=== PATIENT | male | born 1980 | race Caucasian/White ===

== ENCOUNTER 2021-07-12 21:06 | Emergency (ER) | payer BC, SELFPAY | END 2021-07-12 22:21 | disposition left against medical advice (07) | LOC: HO.ED 22:16 | PROVIDERS: Emergency Provider Emergency Medicine; PCP Pediatrics | DX: R10.32 Left lower quadrant pain (principal) ==

== ENCOUNTER 2023-07-23 11:47 | Outpatient (AMB) | payer SELFPAY ==
[2023-07-23 12:09] VITALS: BP 124/82; PULSE 69; TEMP 36.4; O2SAT 97; BMI 30.7
--- NOTE | 2023-07-23 12:09 | MHC.OFFWIV ---
Intake Vital Signs 07/23/23 12:09 Height 6 ft 2 in Weight 239 lb BMI 30.7 BP 124/82 Blood Pressure Location Rt brachial Position Sitting Pulse 69 Pulse Source Pulse Oximeter Temp 97.5 F Temp Source Oral Pulse Oximetry (%) 97 Oxygen Delivery Method Room Air Intake Visit Reasons: [employer]ING[employer] FOR[employer] Pinky swelling/hot to touch Intake Note: Pt presents to the office today for c/o left pinky swelling and also has some left thumb pain that started yesterday. Patient Tobacco Use Status: Never used Tobacco Allergies No Known Allergies Allergy (Verified 07/23/23 12:13) HPI HPI Comments History of Present Illness Details 43-year-old male presents today complaining of swelling and erythema in his left 5th digit the lateral base of his nail bed. He also is complaining of foreign body in his right thumb. [facility] Social History (Updated 07/23/23 @ 12:13 by Deidra Chandler MA) Household Members: None Housing: House Alcohol intake: current Alcohol intake frequency: a few times a week Patient Tobacco Use Status: Never used Tobacco Use of substances other than those prescribed or required for medical reasons: No Review of Systems Const All systems reviewed & are unremarkable except as noted in HPI and below Physical Exam Vital Signs: Last Vital Signs Temp 97.5 F 07/23/23 12:09 Pulse 69 07/23/23 12:09 BP 124/82 07/23/23 12:09 Pulse Ox 97 07/23/23 12:09 Oxygen Delivery Method Room Air 07/23/23 12:09 BMI result Body Mass Index 30.7 Extrem Right upper extremity: Extremity exam: right hand (Foreign body noted in the right thumb. Removed with an 18 gauge needle) Left upper extremity: hand (Erythema and pustules are noted at the base of the nailbed) Details: warmth and swelling Results Reviewed Results Reviewed: A metal foreign body removed from his right thumb. And was displayed to the patient. A small amount pus was withdrawn from the lesion on the left 5th digit. Assessment & Plan Assessment & Plan (1) Cellulitis: Code(s): L03.90 - Cellulitis, unspecified (2) Foreign body (FB) in soft tissue: Code(s): M79.5 - Residual foreign body in soft tissue Plan Cephalexin for 7 days. Continue warm soaks and keep it clean as possible Medications: New cephalexin 500 mg PO BID 14 caps 0RF 7 days Coding Level of Care Code Est Pt Level 3 (67220) Diagnoses Cellulitis L03.90 Foreign body (FB) in soft tissue M79.5
== END 2023-07-23 13:28 | disposition home or self-care (01) ==
PROVIDERS: PCP Internal Medicine; Visit Provider Physician Assistant Medical
DX: L03.90 Cellulitis, unspecified (principal); M79.5 Residual foreign body in soft tissue
CPT/HCPCS: 99213

== ENCOUNTER 2024-12-28 20:50 | Emergency (ER) | payer BC, SELFPAY ==
--- OUTSIDE RECORDS SUMMARY | 2024-12-26 14:22 | XMS_ITS | Encounter Summary ---
Author Organization [facility] Address [address] [place] [address] Care Team Providers Care Project Analyst Name Role Phone Pcp, No Primary Care Provider Unavailabl e Reason for Visit * Reason Comments Fall Fell off dock onto b oat last night. Pain and swelling to right side of upper back and right flank. Denies C-spine tenderness. Encounter Details Date Type Department Care Team (Late st Contact Info) Description 12/26/2024 2:22 PM EDT - 12/26/2024 4:56 PM EDT Emergency [facility] [place] [address] Giselle Arthur MD [address] [place] [address] Fall, initial encounter (Primary Dx); Hematoma Discharge Disposition: Home or Self Care Social History Tobacco Use Types Packs/Day Years Used Date Smoking Tobacco: Never Assessed Sex and Gender Information Value Date Recorded Sex Assigned at Not on file Legal Sex Male 10:46 AM EDT Gender Identity Not on file Sexual Orientation Not on file documented as of this encounter Last Filed Vital Signs Vital Sign Reading Time Taken Comments Blood Pressure 112/71 12/26/2024 4:55 PM EDT Pulse 108 12/26/2024 4:55 PM EDT aw are Temperature 37 C (98.6 F) 12/26/2024 4:55 PM EDT Respiratory Rate 16 12/26/2024 4:55 PM EDT Oxygen Saturation 98% 12/26/2024 4:55 PM EDT Inhaled Oxygen Concentration - - Weight 104.6 kg (230 lb 9.6 oz) 12/26/2024 2:27 PM EDT Height 188 cm (6' 2 ) 12/26/2024 2:27 PM EDT Body Mass Index 29.61 12/26/2024 2:27 PM EDT documented in this encounter Discharge Instructions * Discharge Instructions* Giselle Arthur MD - 12/26/2024 4:45 PM EDT It was a pleasure to participate in your care today. You presented to the Emergency Department today for hematoma after fall. Your evaluation did not reveal a life threatening illness at this time. Please promptly return for any new, concerning, or worsening symptoms. Please drink lots of fluids Take medications as directed Follow up with your doctor Thank you for choosing [facility]! documented in this encounter Medications at Time of Discharge nitrofurantoin, macrocrystal-mon ohydrate, (Macrobid) 100 mg capsule Take 1 capsule (100 mg total) by mouth in the morning and 1 capsule (100 mg total) before bedtime. Do all this for 5 days. 10 capsule 12/28/2024 5 predniSONE (Deltasone) 20 mg tablet PLEASE SEE ATTACHED FOR DETAILED DIRECTIONS 12/16/2023 documented as of this encounter ED Notes * Richelle Asencio RN - 12/26/2024 4:56 PM EDT Teaching completed: Discharge instructions reviewed, Follow up care reviewed, and Signs and symptoms to return discussed. Discharge instructions reviewed with patient, with verbal understanding of instructions. Pt left department ambulatory, accompanied by self. Richelle Asencio RN 12/26/24 2144 * Giselle Arthur MD - 12/26/2024 2:51 PM EDT Chief Complaint Chief Complaint Patient presents with Fall Fell off dock onto boat last night. Pain and swelling to right side of upper back and right flank. Denies C-spine tenderness. I reviewed the nurses notes, vital signs, and other history and pertinent diagnostic tests. History Limited by: None History Trey Hutchinson is a 44 y.o. male with pmh history of urethral stricture s/p repair presents to the emergency department today for fall. He reports at midnight last night he fell down boning steps about4 to 5 feet. He reports hitting the back of his head. No loss of consciousness, not on thinners. Hewas able to get up on his own has been walking since. He reports left lower back pain since the event and has noticed significant swelling to the left lower back. No numbness or weakness of the arms or legs. No headache, dizziness, vision changes. Additional history was obtained from the following independent source --- None Additional history obtained from Medical Record (external note from a unique source): --- 12/10/2024 office visit or urgent care for cellulitis of the right ankle, prescribed Keflex I have reviewed the patients medications, allergies, past medical history, social history and family history as documented. Patient History Medical History[1] Surgical History[2] Family History[3] Social History[4] Review of Systems 10 pt ROS negative aside from what is documented in HPI Physical Physical Exam ED Triage Vitals [12/26/24 1427] Temp 97.8 ??F BP 109/76 Patient Position Heart Rate (!) 115 Resp 20 SpO2 98 % FiO2 (%) Physical Exam Constitutional: Appearance: Normal appearance. HENT: Head: Normocephalic. Mouth/Throat: Mouth: Mucous membranes are moist. Eyes: Extraocular Movements: Extraocular movements intact. Cardiovascular: Rate and Rhythm: Normal rate and regular rhythm. Pulmonary: Effort: Pulmonary effort is normal. Breath sounds: Normal breath sounds. Abdominal: General: Abdomen is flat. Palpations: Abdomen is soft. Tenderness: There is no abdominal tenderness. Musculoskeletal: General: Normal range of motion. Comments: Left lower back with [id number] area of swelling, no bruising, Significantly tender NO midline spine tenderness or step offs Neurological: General: No focal deficit present. Mental Status: He is alert and oriented to person, place, and time. Mental status is at baseline. Results and Data EKG independently reviewed and interpreted by me: No orders to display Labs Reviewed UA WITH REFLEX CULTURE - Abnormal Result Value Color Yellow Clarity Slightly Cloudy (*) Specific Maurice 1.025 pH 6.0 Protein Trace Glucose Negative Ketones Trace (*) Nitrite Positive (*) Bilirubin Negative Blood Negative Leukocyte Esterase Trace (*) UA Urobilinogen 0.2 -MANUAL URINE MICROSCOPIC - Abnormal UA WBC 11-20 (*) RBC 0-2 Hyaline Cast 0-2 Bacteria Many (*) UA Comment Squamous Epithelial >20 (*) WBC Clumps Few (*) CBC WITH AUTO DIFFERENTIAL - Abnormal Auto WBC 10.1 RBC 3.82 (*) Hemoglobin 13.1 (*) Hematocrit 37.8 (*) MCV 99.0 (*) MCH 34.3 (*) MCHC 34.7 RDW (CV) 11.9 RDW (SD) 43.5 Platelets 251 MPV 8.8 (*) Granulocytes % 79.2 Immature Granulocytes % 0.2 Lymphocytes % 12.6 Monocytes % 7.0 Eosinophils % 0.7 Basophils % 0.3 Gran # 8.0 IMM GRAN # 0.02 Eosinophils # 0.1 Lymphocytes # 1.3 MONO # 0.7 BASOPHIL # 0.0 LIPASE - Normal Lipase 32 CMP. - Normal Sodium 142 Potassium 4.5 Chloride 105 CO2 29.1 Anion Gap 8 Glucose Level 87 BUN 17 Creatinine, Serum 0.8 B/CR Ratio 21.3 Glomerular Filtration Rate >=60 Calcium, Total 8.9 Total Protein 6.3 Albumin Level 4.5 A/G Ratio 2.5 Total Bilirubin 1.2 ALT 37 AST 27 Alkaline Phosphatase 97 URINE CULTURE CBC AND DIFFERENTIAL Narrative: The following orders were created for panel order CBC and differential. Procedure Abnormality Status --------- ------ CBC auto differential[[id number]] Abnormal Final result Please view results for these tests on the individual orders. COMPREHENSIVE METABOLIC PANEL Narrative: The following orders were created for panel order Comprehensive metabolic panel. Procedure Abnormality Status --------- ------ Comprehensive Metabolic...[[id number]] Normal Final result Please view results for these tests on the individual orders. CT ABDOMEN/PELVIS AND SPINE RECONS WITH CONTRAST Final Result Gluteus owen hematoma. Procedures Medical Decision Making MDM: Ddx: Patient presents with left low back pain after fall. Patient is slightly tachycardic, vitals otherwise normal. He is well-appearing. He is neurologically intact without any blood thinner use or increased risk factors for intracranial hemorrhage. Exam reassuring, doubt acute intracranial abnormality such as hemorrhage, stroke, skull fracture, will defer CT head at this time. C-spine cleared clinically. Patient does have significant swelling to the left lower back, will obtain CT scans for rule out ofacute traumatic injury secondary to the fall. Will provide pain control in the emergency department. Plan for IV placement, labs, CT scans and reassessment Disposition decision: After review of the studies performed and patient???s clinical response to interventions, using shared decision making, patient will be discharged. I have performed independent interpretation of labs/radiologic studies --- see ED course Complexity of problems assessed --- Fall, gluteus owen hematoma Comorbidities that add complexity to management include --- None Chronic medical problems addressed: --- None I have discussed the patient's care with the consultants, admission, or transfer team members with --- see ED course Social determinants of health: --- None Medical Decision Making Amount and/or Complexity of Data Reviewed Labs: ordered. Decision-making details documented in ED Course. Radiology: ordered. Decision-making details documented in ED Course. Risk OTC drugs. Prescription drug management. Medications morphine injection 4 mg (4 mg intravenous Given 12/26/24 1518) ondansetron (Zofran) injection 4 mg (4 mg intravenous Given 12/26/24 1517) acetaminophen (Tylenol) tablet 650 mg (650 mg oral Given 12/26/24 1554) methocarbamoL (Robaxin) tablet 750 mg (750 mg oral Given 12/26/24 1553) sodium chloride 0.9 % flush 60 mL (60 mL intravenous Given 12/26/24 1557) iohexoL (Omnipaque) 350 mg iodine/mL injection 80 mL (80 mL intravenous Given 12/26/24 1557) ED Course as of 12/26/24 1803 Sun Dec 26, 2024 1542 MCV(!): 99.0 CBC with macrocytic anemia, no baseline. No leukocytosis or thrombocytopenia [HS] 1542 Squamous Epithelial(!): >20 Urinalysis likely contaminated. No urinary symptoms, doubt UTI. No blood to indicate traumatic urologic injury [HS] 1640 Lipase normal. CMP without electrolyte disturbance, no hepatic or renal impairment [HS] 1640 CT ABDOMEN/PELVIS AND SPINE RECONS WITH CONTRAST IMPRESSION: Gluteus owen hematoma. [HS] 1644 Reassessment prior to DC: Vitals WNL. Patient verbalizes understanding of reassuring workup. CTAP with gluteus owen hematoma. Patient also verbalizes understanding of need for prompt return to the ED if new/worsening sx. Patient intends to followup PCP, ER if worse. Amenable to DC at this time. [HS] ED Course User Index [HS] Giselle Arthur MD Impression and Plan Final diagnoses: [W19.XXXA] Fall, initial encounter [T14.8XXA] Hematoma Disposition: Discharge ED Prescriptions None Follow up with: No Pcp No PCP On File [facility] [address] Schedule an appointment as soon as possible for a visit in 2 days [facility] Emergency Department - [address] [address] Go to If symptoms worsen It was a pleasure caring for Trey Hutchinson today. Giselle Arthur MD, KAIDEN [1] No past medical history on file. [2] No past surgical history on file. [3] No family history on file. [4] Giselle Arthur MD 12/26/24 1803 documented in this encounter Miscellaneous Notes * Discharge Instr - Patient Education - Giselle Arthur MD - 12/26/2024 4:45 PM EDT Images from the original note were not included. [id number] After a Fall You have had a fall today. That means that you slipped, tripped, or lost your balance. If your fallwas because of fainting or a seizure, you might need other tests. It is normal to feel sore and tight in your muscles and back the next day, and not just the musclesyou injured. Remember, all the parts of your body are connected, so while one area hurts now, the next day another may hurt. Also, when you injure yourself, it causes inflammation. This then causes the muscles to tighten up and hurt more. After the initial worsening symptoms, they should slowly improve over the next few days. Tell your healthcare provider if you have more severe pain. Even without a definite head injury, you can still get a concussion from your head suddenly jerkingforward, backward, or sideways when you fall. This is especially true if you have had concussions in the past. Concussions and even bleeding can still happen, especially if you had a recent injury ortake blood thinner medicine. It is not unusual to have a mild headache and feel tired and even nauseous or dizzy. Home care ? Rest today and return to your normal activities when you are feeling back to normal. ? If you were injured during the fall, follow the advice from your healthcare provider about how tocare for your injury. ? At first, don't try to stretch out the sore spots. If there is a strain, stretching may make it worse. Massage may help relax the muscles without stretching them. ? Use an ice pack or cold compress on and off at the sore spots for 10 to 20 minutes at a time, as often as you feel comfortable. This may help reduce the inflammation, swelling, and pain. ? Know that if you have any scrapes (abrasions), they often heal within 10 days. Keep the scrapes clean while they start to heal. But an infection may happen even with correct care. So watch for early signs of infection (such as warmth, redness, or swelling). Medicines ? Talk with your healthcare provider before taking new medicines, especially if you have other health problems or are taking other medicines. ? If you need anything for pain, use acetaminophen or ibuprofen, unless you were given a different pain medicine to use. Talk with your healthcare provider before using these medicines if you: o Have chronic liver or kidney disease o Ever had a stomach ulcer or gastrointestinal bleeding o Are taking blood-thinner medicines ? Be careful if you are given prescription pain medicines, narcotics, or medicine for muscle spasms. They can make you sleepy and dizzy. And they can affect your coordination, reflexes, and judgment.Don't drive or do work where you can hurt yourself when taking them. Fall prevention ? Fix, remove, or replace anything that caused your fall. ? Make your home safe by keeping walkways clear of objects you could trip over. ? Use nonslip pads under rugs. Don't use small area rugs or throw rugs. ? Don't walk in poorly lit areas. ? Don't stand on chairs or wobbly ladders. ? Be careful when reaching overhead or looking upward. This position can cause a loss of balance. ? Be sure your shoes fit correctly, have nonslip bottoms, and are in good condition. ? Be careful when going up and down curbs, and walking on uneven sidewalks. ? If your balance is poor, think about using a cane or walker. ? Stay as active as you can. Balance, flexibility, strength, and endurance all come from exercise. They all play a role in preventing falls. ? If you have pets, know where they are before you stand up or walk so you don't trip over them. ? Limit alcohol intake. Alcohol can cause balance problems and increase the risk for falls. ? Use night-lights. ? Have your eyes tested to be sure you are seeing well, even if you already wear glasses. Follow-up Follow up with your healthcare provider, or as advised. If X-rays or CT scans were done, you will be told if there is a change in the reading, especially if it affects treatment. Call 911 Call 911 if any of these happen: ? Trouble breathing ? Confusion ? Trouble waking up ? Fainting or loss of consciousness ? Fast or very slow heart rate ? Seizure ? Trouble with speech or vision, weakness of an arm or leg ? Trouble walking or talking, loss of balance, numbness or weakness on one side of your body, or facial droop When to get medical advice Call your healthcare provider right away if any of these happen: ? Repeated falls, including falls that seem to happen for no reason ? Dizziness ? Severe headache ? Blood in vomit or stools (look black or red in color) Last Reviewed Date: 2022 00:00:00 ?? [id number] The [employer]. All rights reserved. This information is not intended as a substitute for professional medical care. Always follow your healthcare professional's instructions. * Discharge Instr - Patient Education - RT Ulysses - 12/26/2024 4:07 PM EDT Images from the original note were not included. [facility] Procedure Instructions For Imaging With Contrast Media You have been given an injection of an imaging contrast material to add to the information from your CT Scan. This material will pass out of your body in your urine. You will not see it or feel it as it has nocolor and odor. ? If you are not on fluid restrictions, drinking extra water will help ?wash? the contrast out of your system more quickly. ? Remove any bandages, tape or gauze from the injection site within 30 minutes from the end of yourprocedure. ? Allergic reactions are very rare with the Radiographic, MRI, CT Scan or Nuclear Medicine contrastagents used at [facility]. They usually occur either during the test or immediately after the injection. Nevertheless, delayed reactions can happen and usually cause redness, itching and swelling of the skin (hives). It is also possible to have an asthma-like reaction. If you have any non-life threatening reactions, please call us at for instructions and to speak with a radiologist. In an emergency please dial 911 or go to your nearest emergency room. Thank you for choosing [facility]. documented in this encounter Plan of Treatment Not on file documented as of this encounter Procedures Procedure Name Priority Date/Time Associated Diagnosis Comments CT ABDOMEN/PELVIS AND SPINE RECONS WITH CONTRAST STAT 12/26/2024 4:06 PM EDT CMP. STAT 12/26/2024 3:17 PM EDT CBC WITH AUTO DIFFERENTIAL STAT 12/26/2024 3:17 PM EDT CBC AND DIFFERENTIAL STAT 12/26/2024 3:17 PM EDT LIPASE STAT 12/26/2024 3:17 PM EDT CMP. STAT 12/26/2024 3:17 PM EDT UA WITH REFLEX CULTURE STAT 12/26/2024 2:34 PM EDT -MANUAL URINE MICROSCOPIC STAT Add-on 12/26/2024 2:34 PM EDT URINE CULTURE Routine 12/26/2024 2:34 PM EDT documented in this encounter Results * CT ABDOMEN/PELVIS AND SPINE RECONS WITH CONTRAST (12/26/2024 4:06 PM EDT) Anatomical Region Laterality Modality Body Computed Tomogra phy 12/26/2024 4:09 PM EDT Impressions 12/26/2024 4:11 PM EDT Gluteus owen hematoma. Narrative 12/26/2024 4:11 PM EDT PROCEDURE: CT ABDOMEN/PELVIS AND SPINE RECONS WITH CONTRAST CLINICAL HISTORY: Abdominal trauma, blunt, FALL COMPARISON: None. PROTOCOL: Axial images with multiplanar reformations and with small field lumbar spine reconstructions. MIPS quality measures: Any pulmonary or thyroid nodule, adrenal lesion or renal cyst without follow-up recommendations requires no further imaging per consensus guidelines. Classification and recommendations for follow up of pulmonary nodules and pancreatic cysts are based on Fleischner Society or ACR guidelines. CT DOSE: Modern CT scanner with radiation dose reduction techniques were used. Average CTDIvol: 13.65 mGy, Total DLP: 725.52 mGy-cm. Effective Dose: 8.29 mSv (ICRP 103). CONTRAST: IOHEXOL 350 MG IODINE/ML INTRAVENOUS SOLUTION 80 mL intravenous SODIUM CHLORIDE 0.9 % IV FLUSH (BAG) 60 mL intravenous FINDINGS: No acute solid organ abnormality. Abdominal aorta is unremarkable. Probable left renal calculi without hydronephrosis. No GI tract acute abnormality. No free air or free fluid. No acute osseous abnormality. No lumbar spine fracture. Fat stranding and left gluteus owen hematoma measuring approximately 7.2 cm. Procedure Note Shailesh Cooper MD - 12/26/2024 PROCEDURE: CT ABDOMEN/PELVIS AND SPINE RECONS WITH CONTRAST CLINICAL HISTORY: Abdominal trauma, blunt, FALL COMPARISON: None. PROTOCOL: Axial images with multiplanar reformations and with small fieldlumbar spine reconstructions. MIPS quality measures: Any pulmonary or thyroid nodule, adrenal lesion orrenal cyst without follow-up recommendations requires no further imagingper consensus guidelines. Classification and recommendations for follow upof pulmonary nodules and pancreatic cysts are based on Fleischner Societyor ACR guidelines. CT DOSE: Modern CT scanner with radiation dose reduction techniques wereused. Average CTDIvol: 13.65 mGy, Total DLP: 725.52 mGy-cm. EffectiveDose: 8.29 mSv (ICRP 103). CONTRAST: IOHEXOL 350 MG IODINE/ML INTRAVENOUS SOLUTION 80 mL intravenousSODIUM CHLORIDE 0.9 % IV FLUSH (BAG) 60 mL intravenous FINDINGS: No acute solid organ abnormality. Abdominal aorta is unremarkable.Probable left renal calculi without hydronephrosis. No GI tract acuteabnormality. No free air or free fluid. No acute osseous abnormality. No lumbar spine fracture. Fat stranding and left gluteus owen hematoma measuring approximately7.2 cm. IMPRESSION: Gluteus owen hematoma. us Giselle Arthur MD IMG CT PROCEDURES Final Resul t * Comprehensive Metabolic Panel. (12/26/2024 3:17 PM EDT) Sodium 142 136 - 145 mmol/L LAB CHEMISTRY METHOD 12/26/2024 3:55 PM EDT [facility] Potassium 4.5 3.5 - 5.1 mmol/L LAB CHEMISTRY METHOD 12/26/2024 3:55 PM EDT [facility] Chloride 105 98 - 107 mmol/L LAB CHEMISTRY METHOD 12/26/2024 3:55 PM EDT [facility] CO2 29.1 20.0 - 31.0 mmol/L LAB CHEMISTRY METHOD 12/26/2024 3:55 PM EDT [facility] Anion Gap 8 3 - 11 12/26/2024 3:55 PM EDT [facility] Glucose Level 87 70 - 99 mg/dL LAB CHEMISTRY METHOD 12/26/2024 3:55 PM EDT [facility] BUN 17 9 - 23 mg/dL LAB CHEMISTRY METHOD 12/26/2024 3:55 PM EDT [facility] Creatinine, Serum 0.8 0.7 - 1.3 mg/dL LAB CHEMISTRY METHOD 12/26/2024 3:55 PM EDT [facility] B/CR Ratio 21.3 6.0 - 23.0 12/26/2024 3:55 PM EDT [facility] Glomerular Filtration Rate >=60 >=60 mL/min/1. 73 m2 12/26/2024 3:55 PM EDT [facility] Comment:Calculation based on the Chronic Kidney Disease Epidemiology Collaboration(CKD-EPI) equation refit without adjustment for race. Calcium, Total 8.9 8.7 - 10.4 mg/dL LAB CHEMISTRY METHOD 12/26/2024 3:55 PM EDT [facility] Total Protein 6.3 5.7 - 8.2 g/dL LAB CHEMISTRY METHOD 12/26/2024 3:55 PM EDT [facility] Albumin Level 4.5 3.2 - 4.8 g/dL LAB CHEMISTRY METHOD 12/26/2024 3:55 PM EDT [facility] A/G Ratio 2.5 1.1 - 3.0 12/26/2024 3:55 PM EDT [facility] Total Bilirubin 1.2 0.1 - 1.2 mg/dL LAB CHEMISTRY METHOD 12/26/2024 3:55 PM EDT [facility] Comment:The [employer] l Bilirubin_2 (TBil_2) assay is based on a chemical oxidation method using vanadate as an oxidizing agent. ALT 37 10 - 49 U/L LAB CHEMISTRY METHOD 12/26/2024 3:55 PM EDT [facility] AST 27 <34 U/L LAB CHEMISTRY METHOD 12/26/2024 3:55 PM EDT [facility] Alkaline Phosphatase 97 28 - 130 U/L LAB CHEMISTRY METHOD 12/26/2024 3:55 PM EDT [facility] Blood Venous blood / Unknown Venipuncture / Unknown 12/26/2024 3:17 PM EDT 12/26/2024 3:24 PM EDT us Giselle Arthur MD LAB BLOOD ORDERABLES Final Re sult [id number] [place], [place] [id number], * (ABNORMAL) CBC auto differential (12/26/2024 3:17 PM EDT) Auto WBC 10.1 4.5 - 11.5 cells X 10*3/uL 12/26/2024 3:28 PM EDT [facility] RBC 3.82(L) 4.60 - 6.00 cells X 10*6/uL 12/26/2024 3:28 PM EDT [facility] Hemoglobin 13.1(L) 14.0 - 18.0 g/dL 12/26/2024 3:28 PM EDT [facility] Hematocrit 37.8(L) 40.0 - 54.0 % 12/26/2024 3:28 PM EDT [facility] MCV 99.0(H) 80.0 - 94.0 fL 12/26/2024 3:28 PM EDT [facility] MCH 34.3(H) 26.0 - 32.0 pg 12/26/2024 3:28 PM EDT [facility] MCHC 34.7 32.0 - 37.0 g/dL 12/26/2024 3:28 PM EDT [facility] RDW (CV) 11.9 11.5 - 14.5 % 12/26/2024 3:28 PM EDT [facility] RDW (SD) 43.5 36.0 - 48.8 fL 12/26/2024 3:28 PM EDT [facility] Platelets 251 150 - 450 cells X 10*3/uL 12/26/2024 3:28 PM EDT [facility] MPV 8.8(L) 9.5 - 12.3 fL 12/26/2024 3:28 PM EDT [facility] Granulocytes % 79.2 % 12/26/2024 3:28 PM EDT [facility] Comment:Percent cell count r eference ranges have been removed. Per the [employer] recommendations, these ranges should not be reported when absolute cell count reference ranges are reported as this can lead to misinterpretation of CBC data. Immature Granulocytes % 0.2 % 12/26/2024 3:28 PM EDT [facility] Comment:Immature Granulocyte s (percent and absolute counts) include neutrophilic metamyelocytes, myelocytes, and promyelocytes. Lymphocytes % 12.6 % 12/26/2024 3:28 PM EDT [facility] Monocytes % 7.0 % 12/26/2024 3:28 PM EDT [facility] Eosinophils % 0.7 % 12/26/2024 3:28 PM EDT [facility] Basophils % 0.3 % 12/26/2024 3:28 PM EDT [facility] Gran # 8.0 2.3 - 8.6 cells X 10*3/uL 12/26/2024 3:28 PM EDT [facility] Comment:Please Note: Gran # is equivalent to ANC. IMM GRAN # 0.02 0.00 - 0.05 cells X 10*3/uL 12/26/2024 3:28 PM EDT [facility] Eosinophils # 0.1 0.0 - 0.4 cells X 10*3/uL 12/26/2024 3:28 PM EDT [facility] Lymphocytes # 1.3 0.8 - 4.8 cells X 10*3/uL 12/26/2024 3:28 PM EDT [facility] MONO # 0.7 0.1 - 1.3 cells X 10*3/uL 12/26/2024 3:28 PM EDT [facility] BASOPHIL # 0.0 0.0 - 0.2 cells X 10*3/uL 12/26/2024 3:28 PM EDT [facility] Blood Venous blood / Unknown Venipuncture / Unknown 12/26/2024 3:17 PM EDT 12/26/2024 3:24 PM EDT Giselle Arthur MD LAB BLOOD ORDERABLES Final Re sult Performing Organization Address [facility] Co de Phone Number [facility] [id number] [place] [address], * Lipase (12/26/2024 3:17 PM EDT) [facility] Lipase 32 12 - 53 U/L LAB CHEMISTRY METHOD 12/26/2024 3:55 PM EDT [facility] Blood Venous blood / Unknown Venipuncture / Unknown 12/26/2024 3:17 PM EDT 12/26/2024 3:24 PM EDT Giselle Arthur MD LAB BLOOD ORDERABLES Final Re sult Performing Organization Address [facility] Co de Phone Number [facility] [id number] [place] [address], * (ABNORMAL) Urine Culture (12/26/2024 2:34 PM EDT) Pathologist [facility] Urine Culture >100,000 cfu/ml Staphylococcus epidermidis(A) 12/28/2024 8:41 AM EDT [facility] Urine Culture <10,000 cfu/ml Gram negative bacilli(A) 12/28/2024 8:41 AM EDT [facility] Comment: No sensitivity performed per lab policy Urine Culture <10,000 cfu/ml Gram negative bacilli(A) 12/28/2024 8:41 AM EDT [facility] Comment: No sensitivity performed per lab policy Urine Urine specimen collection, clean catch / Unknown Non-blood Collection / Unknown 12/26/2024 2:34 PM EDT 12/26/2024 2:36 PM EDT Narrative Organism Antibiotic Method Susceptibility Staphylococcus epidermidis Daptomycin <=0.5: Susceptible Staphylococcus epidermidis Doxycycline 8: Intermediate Staphylococcus epidermidis Gentamicin <=1: Susceptible Staphylococcus epidermidis Levofloxacin <=1: Susceptible Staphylococcus epidermidis Linezolid <=1: Susceptible Staphylococcus epidermidis Moxifloxacin <=0.5: Susceptible Staphylococcus epidermidis Nitrofurantoin <=16: Susceptible Staphylococcus epidermidis Oxacillin >1: Resistant Staphylococcus epidermidis Penicillin G 1: Resistant Staphylococcus epidermidis Rifampin <=0.25: Susceptible Staphylococcus epidermidis Vancomycin 2: Susceptible us Giselle Arthur MD LAB MICROBIOLOGY - GENERAL OR DERABLES Final Result [facility] CT:[id number] [place] [address] * (ABNORMAL) Manual Urine Microscopic (12/26/2024 2:34 PM EDT) UA WBC 11-20(A) 0 - 5 /hpf 12/26/2024 2:52 PM EDT [facility] RBC 0-2 0 - 2 /hpf 12/26/2024 2:52 PM EDT [facility] Hyaline Cast 0-2 0 - 2 /lpf 12/26/2024 2:52 PM EDT [facility] Bacteria Many(A) Negative /hpf 12/26/2024 2:52 PM EDT [facility] UA Comment 12/26/2024 2:52 PM EDT [facility] Comment:Microscopic elements that are not seen are not reported. Squamous Epithelial >20(A) 0 - 2 /lpf 12/26/2024 2:52 PM EDT [facility] Comment:Specimen does not re present a clean catch. Consider repeating if clinically indicated. WBC Clumps Few(A) None Seen /lpf 12/26/2024 2:52 PM EDT [facility] Urine Urine specimen collection, clean catch / Unknown Non-blood Collection / Unknown 12/26/2024 2:34 PM EDT 12/26/2024 2:36 PM EDT us Giselle Arthur MD LAB URINE ORDERABLES Final Re sult [facility] [id number] [place] [address], [place] * (ABNORMAL) UA with Reflex Culture (12/26/2024 2:34 PM EDT) Color Yellow Yellow, Straw, Dark Yellow 12/26/2024 2:40 PM EDT [facility] Clarity Slightly Cloudy(A) Clear 12/26/2024 2:40 PM EDT [facility] Specific Maurice 1.025 12/27/19 2:40 PM EDT [facility] Comment:Values <1.005 and >1 .030 are considered abnormal. Results should always be interpreted in conjunction with the patient s medical history, clinical presentation, and other findings. pH 6.0 5.0 - 8.0 pH 12/26/2024 2:40 PM EDT [facility] Protein Trace Negative, Trace mg/dL 12/26/2024 2:40 PM EDT [facility] Glucose Negative Negative mg/dL 12/26/2024 2:40 PM EDT [facility] Ketones Trace(A) Negative mg/dL 12/26/2024 2:40 PM EDT [facility] Nitrite Positive(A) Negative 12/26/2024 2:40 PM EDT [facility] Bilirubin Negative Negative 12/26/2024 2:40 PM EDT [facility] Blood Negative Negative 12/26/2024 2:40 PM EDT [facility] Leukocyte Esterase Trace(A) Negative 12/26/2024 2:40 PM EDT [facility] UA Urobilinogen 0.2 0.2 - 1.0 E.U./dL 12/26/2024 2:40 PM EDT [facility] Urine Urine specimen collection, clean catch / Unknown Non-blood Collection / Unknown 12/26/2024 2:34 PM EDT 12/26/2024 2:36 PM EDT us Giselle Arthur MD LAB URINE ORDERABLES Final Re sult [facility] [id number] [place] [address], documented in this encounter Visit Diagnoses Diagnosis Fall, initial encounter- Primary Hematoma Contusion of unspecified site documented in this encounter Administered Medications Inactive Administered Medications - up to 3 most recent administrations Medication Order MAR Action Action Date Dose Rate Site acetaminophen (Tylenol) tablet 650 mg 650 mg, oral, Once, On 12/26/24 at 1547, For 1 dose Given 12/26/2024 3:54 PM EDT 650 mg iohexoL (Omnipaque) 350 mg iodine/mL injection 80 mL 80 mL, intravenous, Once in imaging, contrast, Starting on 12/26/24 at 1553, For 1 dose Given 12/26/2024 3:57 PM EDT 80 mL methocarbamoL (Robaxin) tablet 750 mg 750 mg, oral, Once, On 12/26/24 at 1547, For 1 dose Given 12/26/2024 3:53 PM EDT 750 mg morphine injection 4 mg 4 mg, intravenous, Once, On 12/26/24 at 1505, For 1 dose, If ordered IV Push: May dilute to a final concentration of 0.5 to 5 mg/mL. Administer slow IV Push over 4 to 5 min Given 12/26/2024 3:18 PM EDT 4 mg ondansetron (Zofran) injection 4 mg 4 mg, intravenous, Administer over 2 Minutes, Once, On 12/26/24 at 1505, For 1 dose Given 12/26/2024 3:17 PM EDT 4 mg sodium chloride 0.9 % flush 60 mL 60 mL, intravenous, Administer over 1 Minutes, Once in imaging, imaging study, Starting on 12/26/24 at 1553, For 1 dose Given 12/26/2024 3:57 PM EDT 60 mL documented in this encounter Active and Recently Administered Medications Times are shown in EDT. Scheduled Medication Order 12/24/2024 12/25/2024 12/26/2024 acetaminophen (Tylenol) tablet 650 mg (COMPLETED) 650 mg, oral, Once, On 12/26/24 at 1547, For 1 dose 1554 (Given - Provid er: Richelle Asencio RN) methocarbamoL (Robaxin) tablet 750 mg (COMPLETED) 750 mg, oral, Once, On 12/26/24 at 1547, For 1 dose 1553 (Given - Provid er: Richelle Asencio RN) morphine injection 4 mg (COMPLETED) 4 mg, intravenous, Once, On 12/26/24 at 1505, For 1 dose, If ordered IV Push: May dilute to a final concentration of 0.5 to 5 mg/mL. Administer slow IV Push over 4 to 5 min 1518 (Given - Provid er: Richelle Asencio RN) ondansetron (Zofran) injection 4 mg (COMPLETED) 4 mg, intravenous, Administer over 2 Minutes, Once, On 12/26/24 at 1505, For 1 dose 1517 (Given - Provid er: Richelle Asencio RN) PRN Medication Order 12/24/2024 12/25/2024 12/26/2024 iohexoL (Omnipaque) 350 mg iodine/mL injection 80 mL (COMPLETED) 80 mL, intravenous, Once in imaging, contrast, Starting on 12/26/24 at 1553, For 1 dose 1557 (Given - Provid er: RT Ulysses) sodium chloride 0.9 % flush 60 mL (COMPLETED) 60 mL, intravenous, Administer over 1 Minutes, Once in imaging, imaging study, Starting on 12/26/24 at 1553, For 1 dose 1557 (Given - Provid er: RT Ulysses) documented in this encounter Care Teams Project Analyst Relationship Specialty Start Date End Date Pcp, No [place] [address] PCP - General 12/10/24 documented as of this encounter
--- NOTE | ~2024-12-28 | CT_ITS ---
CLINICAL HISTORY: Fell of 5 ft ladder,, ecchymosis to left back LLQ CT abdomen and pelvis with contrast Comparison: None provided Findings: Mild bibasilar atelectasis/pneumonitis, right worse than left. Mild/borderline cardiomegaly partially imaged. Mild fat deposition of the liver. Gallbladder is unremarkable for CT with artifacts. The adrenal glands are normal. Mild volume loss of the pancreas noted. Spleen approaches the upper limits of normal with splenule noted. Multiple left-sided nephrolithiasis measure up to 7 mm. No hydronephrosis of either kidney at this time. Ginger mesentery with multiple small nonspecific mesenteric lymph nodes. Mild small bowel dilatation in the left hemiabdomen concerning for small bowel obstruction given small bowel loops measuring 3.2 cm diameter. [place] loop ileus from adjacent inflammation could also be considered. Severe stool burden present, including the cecum. Wall thickening of the large intestine is nonspecific and may be due to underdistention, including imaged sigmoid colon. Imaged appendix measures at the upper limits of normal. Appendicolith present without definite acute findings of the appendicitis (image 37 of series 7). Prostate gland measures 6.1 cm diameter. Mild-moderate wall thickening of the urinary bladder is nonspecific. Trace fat containing inguinal hernias. [id number]-[id number] osteoarthritis of the both hips greater than expected for age, left worse than right. Os acetabulum on each side, left greater than right. Previous old injury is also considered. Degenerative changes include facet arthropathy of the imaged spine. Left gluteal hematoma measures 8.5 x 4.[address] with partial expansion of the imaged left gluteal musculature, including left gluteus minimus in the superior accentuated. Dense hematoma measures 9.5 cm long axis at this time. No underlying acute pelvic fracture. Additional subcutaneous edema is nonspecific, left greater than right. IMPRESSION: 1. 9.5 cm left gluteal hematoma without acute underlying pelvic wing fracture. 2. 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 Ossicles and/or old fragments concerning for posttraumatic osteoarthritis from previous/old injury. 3. Nonobstructing nephrolithiasis of the left kidney. Right hydronephrosis. 4. Mild small bowel dilatation concerning for small bowel obstruction versus sentinel loop ileus in the left hemiabdomen. 5. Ginger mesentery is nonspecific by CT. Please consider follow-up in 3 to six-month. This document has been electronically signed by: Kyle Calles, MD on 12/29/2024 00:05:05
[2024-12-28 20:53] VITALS: BP 156/89; PULSE 84; RESP 18; TEMP 36.7; O2SAT 97; BMI 30.2
--- OUTSIDE RECORDS SUMMARY | 2024-12-28 21:49 | XMS_ITS | Encounter Summary ---
Author Organization [facility] Address [address] [place] [address] Care Team Providers Care Boom Truck Driver Name Role Phone Pcp, No Primary Care Provider Unavailabl e Encounter Details Date Type Department Care Team (Late st Contact Info) Description 12/28/2024 Results Follow-Up [facility] Emergency Department - [address] [address] Mariam Mckeon, ELIZABETH [address] [place], [place] [phone] Urine Culture Social History Tobacco Use Types Packs/Day Years Used Date Smoking Tobacco: Never Assessed Sex and Gender Information Value Date Recorded Sex Assigned at Not on file Legal Sex Male 10:46 AM EDT Gender Identity Not on file Sexual Orientation Not on file documented as of this encounter Plan of Treatment Not on file documented as of this encounter Visit Diagnoses Not on filedocumented in this encounter Care Teams Boom Truck Driver Relationship Specialty Start Date End Date Pcp, [place] [address] PCP - General 12/10/24 documented as of this encounter
--- OUTSIDE RECORDS SUMMARY | 2024-12-28 21:49 | XMS_ITS | Clinical Summary ---
Author Organization [facility] Address [address] [place] [address] Care Team Providers Care Production Line Name Role Phone Pcp, No Primary Care Provider Unavailabl e Allergies No known active allergies Medications predniSONE (Deltasone) 20 mg tablet PLEASE SEE ATTACHED FOR DETAILED DIRECTIONS 4 Active nitrofurantoin, macrocrystal-mo nohydrate, (Macrobid) 100 mg capsule Take 1 capsule (100 mg total) by mouth in the morning and 1 capsule (100 mg total) before bedtime. Do all this for 5 days. 10 capsule 5 01/03/20 25 Active cephalexin (Keflex) 500 mg capsuleIndicati ons:Cellulitis of right ankle Take 1 capsule (500 mg total) by mouth in the morning and 1 capsule (500 mg total) at noon and 1 capsule (500 mg total) in the evening and 1 capsule (500 mg total) before bedtime. Do all this for 7 days. 28 capsule 5 12/18/19 25 Encounters Date Type Department Care Team Description 12/28/2024 Results Follow-Up [facility] Emergency Department - [address] [address] Mariam Mckeon RN Urine Culture 12/28/2024 Telephone [facility] Emergency Department - [address] [address] Carolin Lopez PA-C 12/26/2024 2:22 PM EDT - 12/26/2024 4:56 PM EDT Emergency [facility] Emergency Department - [address] [address] Giselle Arthur MD Fall, initial encounter (Primary Dx); Hematoma Discharge Disposition: Home or Self Care 12/26/2024 Procedure Pass [facility] Radiology, [facility] (CT Scan) [address] [place] [address] 12/26/2024 Travel 12/10/2024 3:17 PM EDT - 12/10/2024 11:59 PM EDT Hospital Encounter [facility] [address] [place], [place] [id number] Discharge Disposition: Home or Self Care 12/10/2024 3:00 PM EDT Office Visit [facility] [address] [place] [address] Mario Hester PA-C Cellulitis of right ankle (Primary Dx); Acute right ankle pain from Last 3 Months Social History Tobacco Use Types Packs/Day Years Used Date Smoking Tobacco: Never Assessed Sex and Gender Information Value Date Recorded Sex Assigned at Not on file Legal Sex Male 10:46 AM EDT Gender Identity Not on file Sexual Orientation Not on file Last Filed Vital Signs Vital Sign Reading [...] Mass Index 29.61 12/26/2024 2:27 PM EDT Plan of Treatment Health Maintenance Due Date Last Done Comments Hepatitis C Screening 1982 Lipid Panel 1982 Annual Physical Exam 2000 COVID-19 Vaccine (2023-2 5 season) 2024 Influenza Vaccine (#1) 2024 03/17/2018 Tdap and Td Vaccines Adult 04/15/2028 04/15/2018 Pneumococcal Vaccine: Peds ( 0 to 5 Yrs) and At-Risk Pts (6 to 49 Yrs) Aged Out 04/15/2018 No lo nger eligible based on patient's age to complete this topic HIB Vaccines Aged Out No longer eligi ble based on patient's age to complete this topic HPV Vaccines (No Doses Required) Completed Hepatitis A Vaccines Aged Out No long er eligible based on patient's age to complete this topic IPV Vaccines Aged Out No longer eligi ble based on patient's age to complete this topic Meningococcal Vaccine Aged Out No pradip bogdan eligible based on patient's age to complete this topic RSV <20 Months Aged Out No longer renée gible based on patient's age to complete this topic Procedures Procedure Name Priority Date/Time Associated Diagnosis Comments CT ABDOMEN/PELVIS AND SPINE RECONS WITH CONTRAST STAT 12/26/2024 4:06 PM EDT CMP. STAT 12/26/2024 3:17 PM EDT CBC WITH AUTO DIFFERENTIAL STAT 12/26/2024 3:17 PM EDT LIPASE STAT 12/26/2024 3:17 PM EDT CMP. STAT 12/26/2024 3:17 PM EDT CBC AND DIFFERENTIAL STAT 12/26/2024 3:17 PM EDT -MANUAL URINE MICROSCOPIC STAT Add-on 12/26/2024 2:34 PM EDT UA WITH REFLEX CULTURE STAT 12/26/2024 2:34 PM EDT URINE CULTURE Routine 12/26/2024 2:34 PM EDT X-RAY ANKLE 3+ VIEWS RIGHT STAT 12/10/2024 3:26 PM EDT Acute right ankle pain from Last 3 Months Results * CT ABDOMEN/PELVIS AND SPINE RECONS [...] measuring approximately7.2 cm. IMPRESSION: Gluteus owen hematoma. Giselle Arthur MD IMG CT PROCEDURES Final Resul t * Comprehensive Metabolic Panel. (12/26/2024 3:17 PM EDT) [facility] Sodium 142 136 - 145 mmol/L LAB CHEMISTRY METHOD 12/26/2024 3:55 PM EDT [facility] Potassium 4.5 3.5 - 5.1 mmol/L LAB CHEMISTRY METHOD 12/26/2024 3:55 PM EDT [facility] Chloride 105 98 - 107 mmol/L LAB CHEMISTRY METHOD 12/26/2024 3:55 PM EDT [facility] CO2 29.1 20.0 - 31.0 mmol/L LAB CHEMISTRY METHOD 12/26/2024 3:55 PM EDT [facility] Anion Gap 8 3 - 11 12/26/2024 3:55 PM EDT [facility] Glucose Level 87 70 - 99 mg/dL LAB CHEMISTRY METHOD 12/26/2024 3:55 PM EDT [facility] BUN 17 9 - 23 mg/dL LAB CHEMISTRY METHOD 12/26/2024 3:55 PM EDT [facility] Creatinine, Serum 0.8 0.7 - 1.3 mg/dL LAB CHEMISTRY METHOD 12/26/2024 3:55 PM EDT [facility] B/CR Ratio 21.3 6.0 - 23.0 12/26/2024 3:55 PM EDT [facility] Glomerular Filtration Rate >=60 >=60 mL/min/1. 73 m2 12/26/2024 3:55 PM EDT [facility] Comment:Calculation based on the Chronic Kidney Disease Epidemiology Collaboration(CKD-EPI) equation refit without adjustment for race. Calcium, Total 8.9 8.7 - 10.4 mg/dL LAB CHEMISTRY METHOD 12/26/2024 3:55 PM EDT [facility] Total Protein 6.3 5.7 - 8.2 g/dL LAB CHEMISTRY METHOD 12/26/2024 3:55 PM EDT [facility] Albumin Level 4.5 3.2 - 4.8 g/dL LAB CHEMISTRY METHOD 12/26/2024 3:55 PM EDT [facility] A/G Ratio 2.5 1.1 - 3.0 12/26/2024 3:55 PM EDT [facility] Total Bilirubin 1.2 0.1 - 1.2 mg/dL LAB CHEMISTRY METHOD 12/26/2024 3:55 PM EDT [facility] Comment:The [employer] Tota l Bilirubin_2 (TBil_2) assay is based on a chemical oxidation method using vanadate as an oxidizing agent. ALT 37 10 - 49 U/L LAB CHEMISTRY METHOD 12/26/2024 3:55 PM EDT [facility] AST 27 <34 U/L LAB CHEMISTRY METHOD 12/26/2024 3:55 PM EDT [facility] Alkaline Phosphatase 97 28 - 130 U/L LAB CHEMISTRY METHOD 12/26/2024 3:55 PM EDT [facility] Blood Venous blood / Unknown Venipuncture / Unknown 12/26/2024 3:17 PM EDT 12/26/2024 3:24 PM EDT us Giselle Arthur MD LAB BLOOD ORDERABLES Final Re sult [facility] [id number] [place] [address], * (ABNORMAL) CBC auto differential (12/26/2024 3:17 PM EDT) Auto WBC 10.1 4.5 - 11.5 cells X 10*3/uL 12/26/2024 3:28 PM EDT [facility] RBC 3.82(L) 4.60 - 6.00 cells X 10*6/uL 12/26/2024 3:28 PM EDT [facility] Hemoglobin 13.1(L) 14.0 - 18.0 g/dL 12/26/2024 3:28 PM EDT [facility] Hematocrit 37.8(L) 40.0 - 54.0 % 12/26/2024 3:28 PM EDT [facility] MCV 99.0(H) 80.0 - 94.0 fL 12/26/2024 3:28 PM EDT [facility] MCH 34.3(H) 26.0 - 32.0 pg 12/26/2024 3:28 PM EDT [facility] MCHC 34.7 32.0 - 37.0 g/dL 12/26/2024 3:28 PM EDT [facility] RDW (CV) 11.9 11.5 - 14.5 % 12/26/2024 3:28 PM EDT [facility] RDW (SD) 43.5 36.0 - 48.8 fL 12/26/2024 3:28 PM EDT [facility] Platelets 251 150 - 450 cells X 10*3/uL 12/26/2024 3:28 PM EDT [facility] MPV 8.8(L) 9.5 - 12.3 fL 12/26/2024 3:28 PM EDT [facility] Granulocytes % 79.2 % 12/26/2024 3:28 PM EDT [facility] Comment:Percent cell count r eference ranges have been removed. Per the [employer] recommendations, these ranges should not be reported when absolute cell count reference ranges are reported as this can lead to misinterpretation of CBC data. Immature Granulocytes % 0.2 % 12/26/2024 3:28 PM EDT [facility] Comment:Immature Granulocyte s (percent and absolute counts) include neutrophilic metamyelocytes, myelocytes, and promyelocytes. Lymphocytes % 12.6 % 12/26/2024 3:28 PM EDT [facility] Monocytes % 7.0 % 12/26/2024 3:28 PM EDT [facility] Eosinophils % 0.7 % 12/26/2024 3:28 PM EDT [facility] Basophils % 0.3 % 12/26/2024 3:28 PM EDT [facility] Gran # 8.0 2.3 - 8.6 cells X 10*3/uL 12/26/2024 3:28 PM EDT [facility] Comment:Please Note: Gran # is equivalent to ANC. IMM GRAN # 0.02 0.00 - 0.05 cells X 10*3/uL 12/26/2024 3:28 PM EDT [facility] Eosinophils # 0.1 0.0 - 0.4 cells X 10*3/uL 12/26/2024 3:28 PM EDT [facility] Lymphocytes # 1.3 0.8 - 4.8 cells X 10*3/uL 12/26/2024 3:28 PM EDT [facility] MONO # 0.7 0.1 - 1.3 cells X 10*3/uL 12/26/2024 3:28 PM EDT [facility] BASOPHIL # 0.0 0.0 - 0.2 cells X 10*3/uL 12/26/2024 3:28 PM EDT [facility] Blood Venous blood / Unknown Venipuncture / Unknown 12/26/2024 3:17 PM EDT 12/26/2024 3:24 PM EDT Giselle Arthur MD LAB BLOOD ORDERABLES Final Re sult Performing Organization Address [facility]/ZIP Co de Phone Number [facility] [id number] [place] [address], [place] * Lipase (12/26/2024 3:17 PM EDT) Lipase 32 12 - 53 U/L LAB CHEMISTRY METHOD 12/26/2024 3:55 PM EDT [facility] Blood Venous blood / Unknown Venipuncture / Unknown 12/26/2024 3:17 PM EDT 12/26/2024 3:24 PM EDT Giselle Arthur MD LAB BLOOD ORDERABLES Final Re sult Performing Organization Address [facility]/ZIP Co de Phone Number [facility] [id number] [address] [place] [address], [place] * (ABNORMAL) UA with Reflex Culture (12/26/2024 2:34 PM EDT) Color Yellow Yellow, Straw, Dark Yellow 12/26/2024 2:40 PM EDT [facility] Clarity Slightly Cloudy(A) Clear 12/26/2024 2:40 PM EDT [facility] Specific [place] 1.025 12/27/19 25 2:40 PM EDT [facility] Comment:Values <1.005 and >1 .030 are considered abnormal. Results should always be interpreted in conjunction with the patient s medical history, clinical presentation, and other findings. pH 6.0 5.0 - 8.0 pH 12/26/2024 2:40 PM EDT [facility] Protein Trace Negative, Trace mg/dL 12/26/2024 2:40 PM EDT [facility] Glucose Negative Negative mg/dL 12/26/2024 2:40 PM EDT [facility] Ketones Trace(A) Negative mg/dL 12/26/2024 2:40 PM EDT [facility] Nitrite Positive(A) Negative 12/26/2024 2:40 PM EDT [facility] Bilirubin Negative Negative 12/26/2024 2:40 PM EDT [facility] Blood Negative Negative 12/26/2024 2:40 PM EDT [facility] Leukocyte Esterase Trace(A) Negative 12/26/2024 2:40 PM EDT [facility] UA Urobilinogen 0.2 0.2 - 1.0 E.U./dL 12/26/2024 2:40 PM EDT [facility] Urine Urine specimen collection, clean catch / Unknown Non-blood Collection / Unknown 12/26/2024 2:34 PM EDT 12/26/2024 2:36 PM EDT us Giselle Arthur MD LAB URINE ORDERABLES Final Re sult [facility] CL-[id number] [place] [address], * (ABNORMAL) Manual Urine Microscopic (12/26/2024 2:34 PM EDT) UA WBC 11-20(A) 0 - 5 /hpf 12/26/2024 2:52 PM EDT [facility] RBC 0-2 0 - 2 /hpf 12/26/2024 2:52 PM EDT [facility] Hyaline Cast 0-2 0 - 2 /lpf 12/26/2024 2:52 PM EDT [facility] Bacteria Many(A) Negative /hpf 12/26/2024 2:52 PM EDT [facility] UA Comment 12/26/2024 2:52 PM EDT [facility] Comment:Microscopic elements that are not seen are not reported. Squamous Epithelial >20(A) 0 - 2 /lpf 12/26/2024 2:52 PM EDT [facility] Comment:Specimen does not re present a clean catch. Consider repeating if clinically indicated. WBC Clumps Few(A) None Seen /lpf 12/26/2024 2:52 PM EDT [facility] Urine Urine specimen collection, clean catch / Unknown Non-blood Collection / Unknown 12/26/2024 2:34 PM EDT 12/26/2024 2:36 PM EDT us Giselle Arthur MD LAB URINE ORDERABLES Final Re sult [facility] [id number] [place] [address], * (ABNORMAL) Urine Culture (12/26/2024 2:34 PM EDT) Urine Culture >100,000 cfu/ml Staphylococcus epidermidis(A) 12/28/2024 [...] <=0.25: Susceptible Staphylococcus epidermidis Vancomycin 2: Susceptible Giselle Arthur MD LAB MICROBIOLOGY - GENERAL OR DERABLES Final Result [facility] CT:[id number] [place] [address], * XR ankle 3+ views right (12/10/2024 3:26 PM EDT) Anatomical Region Laterality Modality Right Computed Radiogr aphy 12/10/2024 3:30 PM EDT Impressions 12/10/2024 3:32 PM EDT Soft tissue swelling of the lateral ankle without acute fracture. Narrative 12/10/2024 3:32 PM EDT PROCEDURE: XR ANKLE 3+ VIEWS RIGHT CLINICAL HISTORY: Acute right ankle pain, R lateral ankle pain s/p injury COMPARISON: None. FINDINGS: No fractures or dislocations are observed. Moderate tibiotalar arthrosis noted. Soft tissue swelling overlies the lateral ankle. Procedure Note Ken Winn MD - 12/10/2024 PROCEDURE: XR ANKLE 3+ VIEWS RIGHT CLINICAL HISTORY: Acute right ankle pain, R lateral ankle pain s/pinjury COMPARISON: None. FINDINGS: No fractures or dislocations are observed. Moderate tibiotalar arthrosisnoted. Soft tissue swelling overlies the lateral ankle. IMPRESSION: Soft tissue swelling of the lateral ankle without acute fracture. Mario Hester PA-C IMG XR PROCEDURES Final Re sult from Last 3 Months Insurance [facility] Care Teams Production Line Relationship Specialty Start Date End Date Pcp, [place] [address] PCP - General 12/10/24
--- OUTSIDE RECORDS SUMMARY | 2024-12-28 21:49 | XMS_ITS | Clinical Summary ---
Author Organization [facility] Address [address] [place] [address] Phone Care Team Providers Care Retail Link Analyst Name Role Phone Dank Henry MD Primary Care Provider [phone] Allergies No known active allergies Social History Tobacco Use Types Packs/Day Years Used Date Smoking Tobacco: Never Assessed Education Answer Date Recorded Are you interested in more education? Not on judy e 08/22/2022 Are you concerned about learning? Not on file 08/22/2022 No 08/22/2022 No 08/22/2022 Digital Access Answer Date Recorded No 09/23/2022 No 09/23/2022 No 09/23/2022 Reliable internet access at home? Not on file 09/23/2022 Device with a working camera? Not on file Sex and Gender Information Value Date Recorded Sex Assigned at Not on file Legal Sex Male 7:24 PM EST Gender Identity Not on file Sexual Orientation Not on file Last Filed Vital Signs Vital Sign Reading Time Taken Comments Blood Pressure 122/78 07/13/2021 1:45 AM EDT Pulse 80 07/13/2021 1:45 AM EDT Temperature 37.2 C (99 F) 07/13/2021 1:45 AM EDT Respiratory Rate 16 07/13/2021 1:45 AM EDT Oxygen Saturation 100% 07/13/2021 1:45 AM EDT Inhaled Oxygen Concentration - - Weight - - Height - - Body Mass Index - - Plan of Treatment Health Maintenance Due Date Last Done Comments LIPID PANEL 1982 DEPRESSION SCREENING 1994 SMOKING Hx and SMOKELESS TOBACCO SCREENING 1995 HEPATITIS C SCREENING 2000 HIV ONE-TIME SCREENING (18-6 5 YEARS) 2000 COVID-19 VACCINE (3 - 2023-2 5 season) 2023 08/31/2020, 08/05/2020 INFLUENZA VACCINE (#1) 2024 Adult Td,Tdap Booster 04/15/2028 04/15/2018 PNEUMOCOCCAL VACCINES (0-49 years) Aged Out 04/15/2018 No longer eligible b ased on patient's age to complete this topic HEPATITIS A VACCINES Aged Out No long er eligible based on patient's age to complete this topic HIB VACCINES Aged Out No longer eligi ble based on patient's age to complete this topic MENINGOCOCCAL VACCINES (ACWY) Aged Out No longer eligible based on patient's age to complete this topic MENINGOCOCCAL VACCINES (B) Aged Out N o longer eligible based on patient's age to complete this topic Medical Devices Not on file Insurance [place] [address] [place] [address] CROSS OUT OF STATE PPO [place] OUT OF [facility] PPO [place], [place] [employer] CROSS OUT OF STATE PPO OUT OF [facility] PPO OUT OF [facility] [place] [address] [address] OUT OF [facility] PPO Care Teams Retail Link Analyst Relationship Specialty Start Date End Date Dank Henry MD [address] [address] PCP - General Internal Medicine 11/07/21 Additional Source Comments The information contained in this document represents components of the legal health record. It is not the complete legal health record.[facility]
--- OUTSIDE RECORDS SUMMARY | 2024-12-28 21:49 | XMS_ITS | Encounter Summary ---
Author Organization [facility] Address [address] [place] [address] Phone Care Team Providers Care Facs Teacher Name Role Phone Jessica Reid MD Primary Care Provider [phone] Dat Childress MD Primary Care Provider [phone] Dank Henry MD Primary Care Provider [phone] Encounter Details Date Type Department Care Team (Late st Contact Info) Description 07/12/2021 Procedure Pass [facility], Ct Scan - [address] [address] Social History Tobacco Use Types Packs/Day Years Used Date Smoking Tobacco: Never Assessed Sex and Gender Information Value Date Recorded Sex Assigned at Not on file Legal Sex Male 7:24 PM EST Gender Identity Not on file Sexual Orientation Not on file documented as of this encounter Functional Status * Calculated C-SSRS Risk Score (Lifetime/Recent) Answer Date of Assessment Author No Risk Indicated 07/12/2021 10:13 PM Tej Arana, RN * Onward Suicide Severity Rating Scale (Screener/Recent Self-Report) Question Answer Date of Assessment Author 1. Wish to be (Past 1 Month) No 022 10:13 PM Tej Arana, RN 2. Non-Specific Active Suici micki Thoughts (Past 1 Month) No 07/12/2021 10:13 PM Jhony Arana ea RN 6. Suicidal Behavior (Lifetime) No 10:13 PM Tej Arana, RN documented as of this encounter Plan of Treatment Not on file documented as of this encounter Visit Diagnoses Not on filedocumented in this encounter Care Teams Facs Teacher Relationship Specialty Start Date End Date Jessica Reid MD [address] [place] [address] PCP - General Internal Medicine 07/12/21 08/02/21 Dat Childress MD [address] [place] [address] [address] [place] [address] [email or web address] PCP - General Family Medicine 08/03/21 11/06/21 Dank Henry MD [address] [place] [address] PCP - General Internal Medicine 11/07/21 documented as of this encounter Additional Source Comments The information contained in this document represents components of the legal health record. It is not the complete legal health record.[facility]
--- OUTSIDE RECORDS SUMMARY | 2024-12-28 21:49 | XMS_ITS | Encounter Summary ---
Author Organization [employer] Address [address] [id number] Care Team Providers Care Assistant Education Director Name Role Phone Pcp, No Primary Care Provider Unavailabl e Encounter Details Date Type Department Care Team (Late st Contact Info) Description 12/26/2024 Procedure Pass [facility] Radiology, [facility] (CT Scan) [address] [place] [address] Social History Tobacco Use Types Packs/Day Years [...] on filedocumented in this encounter Care Teams Assistant Education Director Relationship Specialty Start Date End Date Pcp, [place] [address] PCP - General 12/10/24 documented as of this encounter
--- OUTSIDE RECORDS SUMMARY | 2024-12-28 21:49 | XMS_ITS ---
Author Name [facility] Organization Unknown History of Medication Use Medication Directions Dispensed Refills Start Date End Date Stat us cephalexin (Keflex) 500 mg capsule Take 1 capsule (500 mg total) by mouth in the morning and 1 capsule (500 mg total) at noon and 1 capsule (500 mg total) in the evening and 1 capsule (500 mg total) before bedtime. Do all this for 7 days. 12/10/2024 active predniSONE (Deltasone) 20 mg tablet PLEASE SEE ATTACHED FOR DETAILED DIRECTIONS 12/16/2023 active Encounters Encounter Type Encounter Reason Primary Diagnosis Location Date Emergency Unspecified fall, initial encounter Unspecified fall, initial encounter [facility] 12/26/2024 Ambulatory [facility] 12/11/19 25 Ambulatory Cellulitis of right lower limb Cellulitis of right lower limb [facility] 12/10/2024 Care Team Organization Name Specialty Phone Email Start Date End [facility] 12/16/2024 [facility] 12/10/2024
--- OUTSIDE RECORDS SUMMARY | 2024-12-28 21:49 | XMS_ITS | Encounter Summary ---
Author Organization [facility] Address [address] [phone] Care Team Providers Care Shopfitter Name Role Phone Pcp, No Primary Care Provider Unavailabl e Encounter Details Date Type Department Care Team (Late st Contact Info) Description 12/28/2024 Telephone [facility] Emergency Department - [address] [address] Carolin Lopez PA-C [address] [place] [address] Social History Tobacco Use Types Packs/Day Years Used Date Smoking Tobacco: Never Assessed Sex and Gender Information Value Date Recorded Sex Assigned at Not on file Legal Sex Male 10:46 AM EDT Gender Identity Not on file Sexual Orientation Not on file documented as of this encounter Miscellaneous Notes * Telephone Encounter - Carolin Lopez PA-C - 12/28/2024 3:56 PM EDT Spoke with pt, will treat with Macrobid, patient does not have any symptoms but did have urinary stricture in the past with indwelling Ewing and had bacteriuria at that time. That was 3 years ago. Also may not be clean-catch she is uncertain but he does not have a primary at the moment we will follow-up with his new primary when he gets established. Understands if he develops symptoms go to nearest emergency room documented in this encounter Plan of Treatment Not on file documented as of this encounter Visit Diagnoses Not on filedocumented in this encounter Care Teams Shopfitter Relationship Specialty Start Date End Date Pcp, No [place] [address] PCP - General 12/10/24 documented as of this encounter
--- OUTSIDE RECORDS SUMMARY | 2024-12-28 21:49 | XMS_ITS | Encounter Summary ---
Author Organization [employer] Address [address] [place] [address] Care Team Providers Care Director Of Community Center Name Role Phone Pcp, No Primary Care Provider Unavailabl e Encounter Details Date Type Department Care Team (Latest Contact Info) Description 12/26/2024 Travel Social History Tobacco Use Types Packs/Day Years [...] on filedocumented in this encounter Care Teams Director Of Community Center Relationship Specialty Start Date End Date Pcp, No [place] [address] PCP - General 12/10/24 documented as of this encounter
--- NOTE | 2024-12-28 22:04 | ED_ITS ---
HPI - Fall General Chief Complaint: Fall Stated Complaint: Fall on 12/26 Time Seen by Provider: 12/28/24 21:52 Source: patient Mode of arrival: ambulatory Limitations: no limitations History of Present Illness ED Provider: DR. Santana HPI Narrative: A 44-year-old male otherwise healthy presented after sustained a fall from a 5 ft ladder on 12/26 patient fell backward hitting the back of his head and his lower back, patient was evaluated then at [facility] in [place] and was discharged home after obtained CT of abdomen and pelvis, patient returned for worsening of ecchymosis to his left lower back and left lower abdominal area, not receiving anticoagulation therapy, unable to ambulate secondary to severe pain. Related Data Previous Rx's ?Medication ?Instructions ?Recorded cephalexin 500 mg capsule 500 mg PO BID 7 days #14 cap s 07/23/23 oxycodone 5 mg tablet 5 mg PO Q8H PRN pain #14 tab s 12/29/24 Allergies Allergy/AdvReac Type Severity Reaction Status Date / Time No Known Allergies Allergy Verified 12/28/24 21:01 Review of Systems 2 Review of Systems: All other systems are reviewed and are negative Constitutional: Reports as per HPI and Reports no additional constitutional complaints Eyes: Reports as per HPI and Reports no additional eye complaints Reports system reviewed and no additional complaints, except as documented Cardiovascular: Reports as per HPI and Reports no additional cardiovascular complaints Respiratory: Reports as per HPI and Reports no additional respiratory complaints Gastrointestinal: Reports as per HPI and Reports no additional gastrointestinal complaints Genitourinary: Reports no additional female genitourinary complaints Musculoskeletal: Reports no additional musculoskeletal complaints Skin/Breast: Reports system reviewed and no additional complaints, except as docu Psychiatric: Reports no additional psychiatric complaints Endocrine: Reports no additional endocrine complaints Hematologic/Lymphatic: Reports no additional hematologic/lymphatic complaints Allergic/Immunologic: Reports no additional allergic/immunologic complaints Reports system reviewed and no additional complaints, except as documented and Reports Abnormal speech present [facility] Social History Social History Household Members: None Housing: House Alcohol intake: current Alcohol intake frequency: holidays/special occasions only Patient Tobacco Use Status: Never used Tobacco Smoked in Last 30 Days: No Use of substances other than those prescribed or required for medical reasons: Unable to respond Advance Directives: No Advance Directives Information Provided: No Physical Exam 2 Vital Signs: Vital Signs: Last Vital Signs Temp 98.1 F 12/28/24 20:53 Pulse 75 12/29/24 00:23 Resp 20 12/29/24 00:23 BP 118/72 12/29/24 00:23 Pulse Ox 97 12/29/24 00:23 O2 Del Method Room Air 12/29/24 00:23 BMI result Body Mass Index 30.2 Vital signs have been reviewed and appear to be correct. Blood pressure elevated. Heart rate normal. Respiratory rate normal. Temperature normal. Oxygen saturation normal. Appearance: Alert. Oriented X3. No acute distress. Head: Normal external exam. Normocephalic. Atraumatic. No Lane signs noted. No raccoon eyes noted Eyes: PERRLA. EOMI. Conjunctiva and sclera normal. Eyelids normal. ENT: TM's Normal. Pharynx normal. Uvula midline. Moist mucous membranes. No trismus noted. No drooling noted. No muffled voice noted. Neck: Normal inspection. Neck supple. FROM. No adenopathy. Thyroid Normal. No meningeal signs. No neck mass noted. CVS: Normal heart rate and rhythm. Heart sound normal. No murmurs noted. Pulses normal throughout. Respiratory: No respiratory distress. Painless inspiration. Breath sounds normal. No wheezes/rales/rhonchi noted. Chest nontender. No accessory muscle usage noted or decreased air movement noted. Abdomen: Soft and nontender. Bowel sounds normal in all 4 quadrants. No distention noted. No organomegaly noted. No visible injury noted. Back: Good size ecchymosis involving left lower back and left lower abdominal area. Skin: Skin warm and dry. Normal skin color. Normal skin turgor. No rashes/lesions/lacerations noted. Extremities: No lower extremity edema. Extremities exhibit normal range of motion. Extremities nontender. Neuro: Oriented X 3. Cranial nerve exam: II-XII are grossly intact No motor deficit. No sensory deficit. Reflexes normal. Course Reevaluation(s) Reevaluation #1: S/p fall from 4-5 feet height ladder 3 days ago, patient was initially evaluated at trauma center and [place] [id number] for worsening of the pain and hematoma to the left buttock and left lower back, H&H is 10.3 over 28.5 likely from gluteal hematoma, otherwise patient hemodynamically stable, no tachycardia, no hypotension, no old blood workup in the hospital to compare. Patient feels better with morphine able to ambulate with no pain or discomfort. CT's report mild small bowel dilatation concerning small-bowel obstruction versus ileus, patient confirms there is no abdominal pain, abdominal exam shows no abdominal tenderness, no nausea, no vomiting, patient confirmed that he had normal bowel movement in the morning with no blood, patient has been passing gas, and no prior intra-abdominal surgery, making SBO or ileus is extremely unlikely diagnosis. Instructed to apply ice to the affected area, take 2 days off from work, will prescribe oxycodone to help the patient go through pain at home. Time: 01:14 Medications Administered Discontinued Medications Generic Name Dose Route Start Last Admin Trade Name Freq PRN Reason Stop Dose Admin Iohexol 85 ml 12/28/24 22:55 12/28/24 22:55 Iohexol 350 Mg/Ml 100 Ml Infus..Btl IV 12/28/24 22:56 85 ml ONCE ONE Administration Morphine Sulfate 4 mg 12/28/24 22:00 12/28/24 22:20 Morphine Sulfate 4 Mg/Ml Cartridge IVPUSH 12/28/24 22:01 4 mg ONCE ONE Administration Protocol Medical Decision Making Differential Diagnosis Differential Diagnoses: The differential diagnosis associated with the presentation includes (Muscular hematoma, pelvic fracture, severe anemia, electrolyte derangement, hematuria or kidney injury, intra-abdominal organ injury.) Admission/Observation Consideration of admission/observation: Escalation of care including admission/observation considered Lab Data MDM Lab Attestation statement: I reviewed the patient's lab results. 12/28/24 22:15 12/28/24 22:15 Labs: Lab Results 12/28/24 12/29/24 Range/Units 22:15 00:14 WBC 6.3 (4.8-10.8) X10*3/uL RBC 2.94 L (4.60-5.80) X10*6/uL Hgb 10.3 L (14.0-18.0) g/dl Hct 28.5 L (42.0-52.0) % MCV 96.9 (80.0-98.0) fL MCH 35.0 H (27.0-33.0) pg MCHC 36.1 H (31.0-36.0) g/dl RDW 11.7 (11.0-16.0) % Plt Count 194 (160-400) X10*3/uL MPV 8.9 L (9.4-12.4) fL Immature Gran % (Auto) 0.3 (0.0-0.4) % Neut % (Auto) 60.7 (45-73) % Lymph % (Auto) 28.3 (20-40) % [place] % (Auto) 8.2 (2-11) % Eos % (Auto) 1.9 (0-4) % Baso % (Auto) 0.6 (0-2) % Lymph # (Auto) 1.8 (1.2-4.9) X10*3/uL [place] # (Auto) 0.5 (0.1-1.2) X10*3/uL Eos # (Auto) 0.1 (0.0-0.4) X10*3/uL Baso # (Auto) 0.0 (0.0-0.2) X10*3/uL Abs Immat Gran (auto) 0.02 (0.00-0.03) X10*3/uL Absolute Neuts (auto) 3.8 (2.0-8.3) x10*3/uL Absolute Nucleated RBC 0.000 (0.0-0.012) X10*3/uL Nucleated RBC % (auto) 0.0 (0.0-0.2) /100WBC Sodium 142 (135-145) mmol/L Potassium 4.0 (3.3-5.1) mmol/L Chloride 108 (96-108) mmol/L Carbon Dioxide 29 (22-29) mmol/L Anion Gap 9 L (12-20) BUN 19 H (9-16) mg/dL Creatinine 0.97 (0.5-1.4) mg/dL Estim Creat Clear Calc 129.1 Estimated GFR > 60 Random Glucose 99 (60-115) mg/dL Calcium 8.2 L (8.4-10.2) mg/dL Urine Color Yellow Urine Appearance Clear Urine pH 6.5 (5.0-9.0) Ur Specific [place] >= 1.030 H (1.005-1.025) Urine Protein Negative (Neg-Trace) mg/dL Urine Glucose (UA) Negative (Negative) mg/dL Urine Ketones Negative (Negative) mg/dL Urine Blood Negative (Negative) Urine Nitrite Negative (Negative) Ur Leukocyte Esterase Trace H (Negative) Urine RBC 0-2 (0-2) /HPF Urine WBC 0-5 (0-5) /HPF Ur Squamous Epith Cells 0-2 (0-2) /HPF Urine Bacteria None Seen (None Seen) Hyaline Casts 0-2 (0-2) /LPF Independent Interpretation I performed an independent interpretation of an: CT Scan (Abdomen pelvis:1. 9.5 cm left gluteal hematoma without acute underlying pelvic wing fracture. 2. 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 [place]ss[place] and/or old fragments concerning for posttraumatic osteoarthritis from previous/old injury. 3. Nonobstructing nephrolithiasis of the left k) Radiology Impression Discussion of test interpretation with radiology: I have reviewed the radiologist's reading. Critical Care Time Critical Care Time Critical Care Time: Yes Total Critical Care Time: 60 Attestation: The patient was critically ill with a high probability of imminent or life- threatening deterioration. I spent greater than 30 minutes of discontinuous time evaluating the patient, delivering critical care at the bedside, discussing evaluating data with consultants. Critical care time does not include time spent performing separately billable procedures or teaching. Time spent performing critical care was 60 minutes. Discharge Plan Discharge Clinical Impression: Hematoma of muscle, Traumatic ecchymosis of buttock Patient Disposition: Home, Self-Care Instructions: Contusion in Adults (ED) Prescriptions: New oxycodone 5 mg tablet 5 mg PO Q8H PRN (Reason: pain) Qty: 14 0RF Rx Instructions: Partial Fill upon patient request. No Action cephalexin 500 mg capsule 500 mg PO BID 7 Days Qty: 14 0RF Stand Alone Forms: Work/School Release Print Language: Macedonian
[2024-12-28 22:22] LABS: MANUAL DIFF FLAG NO
[2024-12-28 22:23] LABS: Hematocrit 28.5 % (42.0-52.0); Hemoglobin 10.3 g/dl (14.0-18.0); Imm Gran Abs Auto 0.02 X10*3/uL (0.00-0.03); Imm Gran Pct Auto 0.3 % (0.0-0.4); Lymphocytes Absolute Auto 1.8 X10*3/uL (1.2-4.9); Mean Corpuscular HGB Conc 36.1 g/dl (31.0-36.0); Mean Corpuscular Hemoglobin 35.0 pg (27.0-33.0); Mean Corpuscular Volume 96.9 fL (80.0-98.0); NRBC Abs Auto 0.000 X10*3/uL (0.0-0.012); NRBC Pct Auto 0.0 /100WBC (0.0-0.2); Platelet Count 194 X10*3/uL (160-400); Red Blood Count 2.94 X10*6/uL (4.60-5.80); White Blood Count 6.3 X10*3/uL (4.8-10.8)
[2024-12-28 22:34] LABS: Anion Gap 9 (12-20); Blood Urea Nitrogen 19 mg/dL (9-16); Calcium 8.2 mg/dL (8.4-10.2); Carbon Dioxide 29 mmol/L (22-29); Chloride 108 mmol/L (96-108); Creatinine Clr Calc Pharmacy 129.1; Estimated Glomerular Filt Rate > 60; Potassium 4.0 mmol/L (3.3-5.1); Sodium 142 mmol/L (135-145)
[2024-12-28] MEDS: iohexoL 350 MG/ML 100 ML INFUS..BTL 85 ML IV (22:55)
[2024-12-29 00:22] LABS: Appearance Urine Clear; Glucose Urine UA Negative (Negative); PH 6.5 (5.0-9.0); Specific Gravity - Urine >= 1.030 (1.005-1.025); UMIC TRIGGER UACC YES
[2024-12-29 00:23] VITALS: BP 118/72; PULSE 75; RESP 20; O2SAT 97
[2024-12-29 01:31] VITALS: BP 138/88; PULSE 88; RESP 18; TEMP 37.1; O2SAT 100
== END 2024-12-29 01:33 | disposition home or self-care (01) ==
PROVIDERS: Emergency Provider Emergency Medicine
DX: S30.1XXA Contusion of abdominal wall, initial encounter (principal); W11.XXXA Fall on and from ladder, initial encounter; Y93.9 Activity, unspecified; Y92.9 Unspecified place or not applicable; Y99.9 Unspecified external cause status; R10.32 Left lower quadrant pain; M54.50 Low back pain, unspecified; R58 Hemorrhage, not elsewhere classified
CPT/HCPCS: 36415; 74177; 80048; 81001; 85025; 96374; 96376; 99284; 99285; J2270; Q9967

== ENCOUNTER → 2024-12-28 22:00 | Outpatient (BNV) | payer BC, SELFPAY | PROVIDERS: Emergency Provider Emergency Medicine; Visit Provider Radiology Neuroradiology | DX: N20.0 Calculus of kidney (principal); S30.92XA Unspecified superficial injury of abdominal wall, initial encounter; M16.0 Bilateral primary osteoarthritis of hip | CPT/HCPCS: 74177 ==

== ENCOUNTER 2025-02-04 14:14 | Inpatient (IN) | payer BC, SELFPAY ==
[2025-02-04] VITALS (9 sets, daily range): BP systolic 114–142; BP diastolic 60–102; PULSE 101–142; RESP 16–25; TEMP 36.6–38.1; O2SAT 95–98; BMI 30.3; BMI 32.5
--- NOTE | ~2025-02-04 | CT_ITS ---
CLINICAL HISTORY: ? pyelonephritis, ? left kidney trauma in Aug CT abdomen and pelvis with contrast Comparison: CT/SR - CT ABDOMEN PELVIS W IV CON - 12/28/24 22:52 EDT Findings: No consolidation or effusion. Gallbladder is unremarkable. No biliary ductal dilatation. Mild low-attenuation of the liver suggestive of mild steatosis. The spleen, pancreas and adrenal glands are unremarkable. Nonobstructing stones in the left kidney the largest 8 mm. No ureteral stones and no hydronephrosis or hydroureter bilaterally. Normal enhancement of bilateral kidneys. No perinephric stranding. No bowel obstruction, pneumoperitoneum, or pneumatosis. No free fluid or loculated fluid collection. Normal appendix. Urinary bladder only mildly filled with wall thickening which may represent cystitis. Small left-sided urinary bladder diverticulum. Prostate is enlarged, correlate with PSA level. Abdominal aorta normal in size No acute fracture degenerative changes of the hips. IMPRESSION: 1. No CT evidence of acute pyelonephritis. 2. Urinary bladder wall thickening, correlate with urinalysis for cystitis. Small left-sided urinary bladder diverticulum. 3. Nonobstructing left renal stones. No ureteral stones and no hydronephrosis or hydroureter bilaterally. This document has been electronically signed by: Selin Hills MD on 02/04/2025 19:01:24
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
--- NOTE | 2025-02-04 14:39 | ECG_ITS ---
Test Reason : TACHYCARDIA Blood Pressure : */* mmHG Vent. Rate : 128 BPM Atrial Rate : 128 BPM P-R Int : 148 ms QRS Dur : 84 ms QT Int : 308 ms P-R-T Axes : 41 52 52 degrees QTcB Int : [address] & T wave abnormality, consider anterolateral ischemia Abnormal ECG No previous ECGs available Referred By: Anna Woodruff Electronically Signed By: KIN MILLER MD
--- NOTE | 2025-02-04 14:39 | PC.NURSE ---
Charge nurse made aware of pt at this time d/t HR/BP and fever at home
[2025-02-04 15:18] LABS: Hematocrit 44.1 % (42.0-52.0); Hemoglobin 15.5 g/dl (14.0-18.0); Imm Gran Abs Auto 0.17 X10*3/uL (0.00-0.03); Imm Gran Pct Auto 0.8 % (0.0-0.4); Lymphocytes Absolute Auto 0.4 X10*3/uL (1.2-4.9); MANUAL DIFF FLAG SCAN; Mean Corpuscular HGB Conc 35.1 g/dl (31.0-36.0); Mean Corpuscular Hemoglobin 34.8 pg (27.0-33.0); Mean Corpuscular Volume 99.1 fL (80.0-98.0); NRBC Abs Auto 0.000 X10*3/uL (0.0-0.012); NRBC Pct Auto 0.0 /100WBC (0.0-0.2); Platelet Count 238 X10*3/uL (160-400); Red Blood Count 4.45 X10*6/uL (4.60-5.80); SCAN SMEAR FLAG 1; White Blood Count 20.4 X10*3/uL (4.8-10.8)
[2025-02-04 15:27] LABS: Appearance Urine Cloudy; Glucose Urine UA Negative (Negative); PH 6.5 (5.0-9.0); Specific Gravity - Urine 1.020 (1.005-1.025); UMIC TRIGGER UACC YES
[2025-02-04 15:30] LABS: UACC Culture Trigger YES
[2025-02-04] MEDS: cefEPime HCl/D5W 2 GM/50 ML PIGGYBACK IV (15:31)
[2025-02-04 15:38] LABS: IDNOW Serial# 55D5AD1C
[2025-02-04 15:39] LABS: COVID-19 Test Negative (Negative)
[2025-02-04 15:47] LABS: Alanine Aminotransferase 39 U/L (0-40); Albumin Level 5.0 g/dL (3.5-5.0); Anion Gap 13 (12-20); Aspartate Amino Transferase 28 U/L (5-37); Blood Urea Nitrogen 18 mg/dL (9-16); Calcium 9.5 mg/dL (8.4-10.2); Carbon Dioxide 25 mmol/L (22-29); Chloride 107 mmol/L (96-108); Creatinine Clr Calc Pharmacy 152.4; Estimated Glomerular Filt Rate > 60; Magnesium 2.2 mg/dL (1.6-2.6); Potassium 3.8 mmol/L (3.3-5.1); Sodium 141 mmol/L (135-145); Total Protein 7.2 g/dL (6.5-8.0)
[2025-02-04 15:49] LABS: IDNOW Serial# 08D9AD1C; Influenza B2 Negative (Negative)
[2025-02-04 15:49] LABS: Troponin-I High Sensitivity < 2.7 ng/L (<3.5-35.0)
--- NOTE | 2025-02-04 16:07 | ECG_ITS ---
Test Reason : REPEAT Blood Pressure : */* mmHG Vent. Rate : 107 BPM Atrial Rate : 107 BPM P-R Int : 162 ms QRS Dur : 86 ms QT Int : 348 ms P-R-T Axes : 35 34 42 degrees QTcB Int : 464 ms Sinus tachycardia Nonspecific ST and T wave abnormality Abnormal ECG When compared with ECG of 04-Feb-2025 14:49, ST less depressed in Anterolateral leads Referred By: Mary Ellen Klein Electronically Signed By: KIN MILLER MD
[2025-02-04 16:30] LABS: Lipase 22 U/L (8-78)
--- NOTE | 2025-02-04 16:32 | MHC.EDTECH ---
Per Md/ RN to wait for the HR to be below 100. Ekg pending
[2025-02-04 16:43] LABS: Alkaline Phosphatase 108 U/L (39-117)
[2025-02-04 17:10] LABS: Reflex Lactate? Lactic Acid Added
--- NOTE | 2025-02-04 17:14 | MHC.EDTECH ---
Lactic repeat drawn pending 3rd liter to be done. then to be redrawn per RN Sepideh.
--- NOTE | 2025-02-04 17:21 | PC.NURSE ---
Pt oob to [facility]
[2025-02-04] MEDS: iohexoL 350 MG/ML 100 ML INFUS..BTL IV (17:35)
[2025-02-04 18:36] LABS: ~Lactic Acid-LAB USE ONLY 2.0 mmol/L (0.5-2.0)
--- NOTE | 2025-02-04 19:28 | P.HPHOSP_ITS ---
History of Present Illness Date of Service: 02/04/25 Chief Complaint: Fever 44-year-old urethral stricture, history; presented to the hospital with a chief complaint of fever/dysuria. Patient also reports dysuria/urinary urgency. Patient mentioned that his urinary symptoms started about a week ago had a urinalysis done by his PCP which grew E coli. Patient was given Macrobid but patient has not started taking it as he was on vacation; presented today with fevers and chills. Reports having mild nausea Denies any chest pain or palpitations. Review of all other systems is negative except mentioned above ER course: Per ER team, patient's exam was fairly benign but patient was noted to be tachycardic in 150s; febrile; has severe leukocytosis; given IV fluids at 30 cc/kg; urinalysis abdominal cancer with UTI. CT scan showed cystitis. [facility] Social History Household Members: None Housing: House Alcohol intake: current Alcohol intake frequency: holidays/special occasions only Patient Tobacco Use Status: Never used Tobacco Use of substances other than those prescribed or required for medical reasons: No Advance Directives: No Advance Directives Information Provided: No Meds Allergies Allergy/AdvReac Type Severity Reaction Status Date / Time No Known Allergies Allergy Verified 02/04/25 14:37 Physical Exam 2 Vital Signs and Narrative: Vital Signs: Last Vital Signs Temp 100.5 F H 02/04/25 18:27 Pulse 115 H 02/04/25 18:27 Resp 18 02/04/25 18:27 BP 130/75 02/04/25 18:27 Pulse Ox 98 02/04/25 18:27 O2 Del Method Room Air 02/04/25 18:27 BMI result Body Mass Index 30.3 Gen: Appears be in no acute distress HEENT: NCAT, Moist mucosa. Pulmonary: Vesicular breath sounds, fair air entry CVS: Normal S1-S2 Abdomen: BS+, Soft, Nontender Extremities: Warm well perfused Neuro: Alert and awake. Results Labs 02/04/25 15:04 02/04/25 15:04 Labs: Laboratory Results - last 24 hr 02/04/25 02/04/25 02/04/25 15:04 15:05 15:18 MCV 99.1 H MCH 34.8 H MCHC 35.1 RDW 11.9 Plt Count 238 MPV 8.9 L Immature Gran % (Auto) 0.8 H Neut % (Auto) 91.7 H Lymph % (Auto) 2.0 L [place] % (Auto) 5.2 Eos % (Auto) 0.0 Baso % (Auto) 0.3 Lymph # (Auto) 0.4 L [place] # (Auto) 1.1 Eos # (Auto) 0.0 Baso # (Auto) 0.1 Abs Immat Gran (auto) 0.17 H Absolute Neuts (auto) 18.7 H Absolute Nucleated RBC 0.000 Nucleated RBC % (auto) 0.0 Smear Tech's Comments VERIFIED Anion Gap 13 Estim Creat Clear Calc 152.4 Estimated GFR > 60 Random Glucose 106 Lactic Acid 2.4 H* Lactic Acid F/U @ 2Hr Calcium 9.5 D Magnesium 2.2 Total Bilirubin 1.6 H Direct Bilirubin 0.3 AST 28 ALT 39 Alkaline Phosphatase 108 Troponin I High Sens < 2.7 Total Protein 7.2 Albumin 5.0 Lipase 22 Urine Color Yellow Urine Appearance Cloudy Urine pH 6.5 Ur Specific [place] 1.020 Urine Protein Negative Urine Glucose (UA) Negative Urine Ketones Negative Urine Blood Small (1+) H Urine Nitrite Positive H Ur Leukocyte Esterase Moderate (2+) H Urine RBC 3-5 H Urine WBC >50 H Ur Squamous Epith Cells 0-2 Urine Bacteria 4+ Hyaline Casts 0-2 COVID-19 ([facility]ILLIP) Negative COVID-19 Clin Com See Note Influenza Type A (EL) Negative Influenza Type B (EL) Negative Influenza A & B Note See Note 02/04/25 18:14 MCV MCH MCHC RDW Plt Count MPV Immature Gran % (Auto) Neut % (Auto) Lymph % (Auto) [place] % (Auto) Eos % (Auto) Baso % (Auto) Lymph # (Auto) [place] # (Auto) Eos # (Auto) Baso # (Auto) Abs Immat Gran (auto) Absolute Neuts (auto) Absolute Nucleated RBC Nucleated RBC % (auto) Smear Tech's Comments Anion Gap Estim Creat Clear Calc Estimated GFR Random Glucose Lactic Acid Lactic Acid F/U @ 2Hr 2.0 Calcium Magnesium Total Bilirubin Direct Bilirubin AST ALT Alkaline Phosphatase Troponin I High Sens Total Protein Albumin Lipase Urine Color Urine Appearance Urine pH Ur Specific [place] Urine Protein Urine Glucose (UA) Urine Ketones Urine Blood Urine Nitrite Ur Leukocyte Esterase Urine RBC Urine WBC Ur Squamous Epith Cells Urine Bacteria Hyaline Casts COVID-19 (PHILLIP) COVID-19 Clin Com Influenza Type A (EL) Influenza Type B (EL) Influenza A & B Note Assessment and Plan (1) Cystitis: Status: Acute Plan 44-year-old urethral stricture, history; presented to the hospital with a chief complaint of fever/dysuria. Admitted for following Sepsis: UTI: Microscopic hematuria: Patient outpatient urine grew E coli. Blood pressure currently stable. Continue cefepime Follow up repeat cultures IV fluids DVT prophylaxis: Lovenox Code status: Full code Quality Stroke Does the patient have a stroke diagnosis?: No VTE Prior VTE?: No VTE Risk Level:: Medical - moderate - high VTE Device Contraindication: Treatment Not Indicated VTE Drug Contraindication: N/A - Med Ordered
[2025-02-04] MEDS: Lactated Ringers 1,000 ML 100 ML IVCONT (20:22)
--- NOTE | 2025-02-04 20:23 | PHA.MEDREC ---
Addendum entered by Carlitos Moya RPh 02/04/25 20:47: MED REC REVIEWED BY Radha Original Note: Pharmacy Consult ? Medication Reconciliation Pharmacy has completed the medication reconciliation. Patient states he is no on any medications.
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
--- NOTE | 2025-02-04 21:13 | PC.NURSE ---
medicated per jun, notified primary nurse ELIZABETH Bunn
--- NOTE | 2025-02-04 22:13 | PC.NURSE ---
Pt states that he has history of falls within the past 6 months, but that falls only occur when he is drinking alcohol. Pt notified that d/t history of recent falls, he must be classified as High fall risk per hospital policy. Pt allowed RN to apply yellow socks and wrist band, but is declining bed and chair alarms. Pt educated about risk of falls while in hospital. Pt states that he understands the risks but refuses alarms.
[2025-02-04] MEDS: 0.9 % Sodium Chloride Flush 3 ML SYRINGE IVFLUSH (22:36)
[2025-02-05] VITALS (9 sets, daily range): BP systolic 119–140; BP diastolic 66–93; PULSE 86–105; RESP 14–18; TEMP 36.2–37.5; O2SAT 95–98
[2025-02-05] MEDS: cefEPime HCl/D5W 2 GM/50 ML PIGGYBACK IV ×4 (00:05→23:53)
[2025-02-05] MEDS: Lactated Ringers 1,000 ML 100 ML IVCONT ×2 (04:13→15:14)
[2025-02-05 08:00] LABS: MANUAL DIFF FLAG NO
[2025-02-05 08:20] LABS: Hematocrit 38.1 % (42.0-52.0); Hemoglobin 12.7 g/dl (14.0-18.0); Imm Gran Abs Auto 0.11 X10*3/uL (0.00-0.03); Imm Gran Pct Auto 0.6 % (0.0-0.4); Lymphocytes Absolute Auto 1.4 X10*3/uL (1.2-4.9); Mean Corpuscular HGB Conc 33.3 g/dl (31.0-36.0); Mean Corpuscular Hemoglobin 33.8 pg (27.0-33.0); Mean Corpuscular Volume 101.3 fL (80.0-98.0); NRBC Abs Auto 0.000 X10*3/uL (0.0-0.012); NRBC Pct Auto 0.0 /100WBC (0.0-0.2); Platelet Count 188 X10*3/uL (160-400); Red Blood Count 3.76 X10*6/uL (4.60-5.80); White Blood Count 17.0 X10*3/uL (4.8-10.8)
[2025-02-05 08:48] LABS: Alanine Aminotransferase 57 U/L (0-40); Albumin Level 3.7 g/dL (3.5-5.0); Alkaline Phosphatase 88 U/L (39-117); Anion Gap 10 (12-20); Aspartate Amino Transferase 50 U/L (5-37); Blood Urea Nitrogen 12 mg/dL (9-16); Carbon Dioxide 26 mmol/L (22-29); Chloride 110 mmol/L (96-108); Creatinine Clr Calc Pharmacy 153.8; Estimated Glomerular Filt Rate > 60; Potassium 4.1 mmol/L (3.3-5.1); Sodium 142 mmol/L (135-145); Total Protein 5.6 g/dL (6.5-8.0)
[2025-02-05 09:04] LABS: Calcium 8.5 mg/dL (8.4-10.2)
[2025-02-05] MEDS: 0.9 % Sodium Chloride Flush 3 ML SYRINGE IVFLUSH (09:28)
--- NOTE | 2025-02-05 12:37 | P.PNIM_ITS ---
Subjective Subjective Date of Service: 02/05/25 Interval History: f/u on uti, sepsis feels better, no further fever or chills since yesterday wbc trending down, urine culture negative Physical Exam 2 Vital Signs: Vital Signs: Last Vital Signs Temp 97.8 F 02/05/25 11:20 Pulse 94 02/05/25 11:20 Resp 16 02/05/25 11:20 BP 132/70 02/05/25 11:20 Pulse Ox 95 02/05/25 11:20 O2 Del Method Room Air 02/05/25 11:20 BMI result Body Mass Index 32.5 Appearance: Alert. Oriented X3. No acute distress. Head: Normal external exam. Normocephalic. Atraumatic. No Lane signs noted. No raccoon eyes noted Eyes: PERRLA. EOMI. Conjunctiva and sclera normal. Eyelids normal. ENT: TM's Normal. Pharynx normal. Uvula midline. Moist mucous membranes. No trismus noted. No drooling noted. No muffled voice noted. Neck: Normal inspection. Neck supple. FROM. No adenopathy. Thyroid Normal. No meningeal signs. No neck mass noted. CVS: Normal heart rate and rhythm. Heart sound normal. No murmurs noted. Pulses normal throughout. Respiratory: No respiratory distress. Painless inspiration. Breath sounds normal. No wheezes/rales/rhonchi noted. Chest nontender. No accessory muscle usage noted or decreased air movement noted. Abdomen: Soft and nontender. Bowel sounds normal in all 4 quadrants. No distention noted. No organomegaly noted. No visible injury noted. Back: Good size ecchymosis involving left lower back and left lower abdominal area. Skin: Skin warm and dry. Normal skin color. Normal skin turgor. No rashes/lesions/lacerations noted. Extremities: No lower extremity edema. Extremities exhibit normal range of motion. Extremities nontender. Neuro: Oriented X 3. Cranial nerve exam: II-XII are grossly intact No motor deficit. No sensory deficit. Reflexes normal. Const: Other: alert and oriented, no other issues Objective Data Active Medications Acetaminophen (Acetaminophen 325 Mg Tablet) 650 mg PO Q6H PRN PRN Reason: Pain, Mild 1-3,fever,headache Last Admin: 02/05/25 04:13 Dose: 650 mg Documented By: CARINA Calcium Carbonate (Calcium Carbonate 750 Mg Tab.Chew) 750 mg PO Q4H PRN PRN Reason: Heartburn Enoxaparin Sodium (Enoxaparin Sodium 40 Mg/0.4 Ml Syringe) 40 mg SUBCUT Q24H [facility] Last Admin: 02/04/25 21:13 Dose: 40 mg Documented By: ALEXA Hydromorphone HCl (Hydromorphone Hcl 0.5 Mg/0.5 Ml Syringe) 0.5 mg IVPUSH Q4H PRN; Protocol PRN Reason: Pain, Severe (Pain Scale 7-10) Last Admin: 02/05/25 10:41 Dose: 0.5 mg Documented By: ELIDA Lactated Ringer's (Lr) 1,000 mls @ 100 mls/hr IVCONT .Q10H [facility] Last Admin: 02/05/25 04:13 Dose: 100 mls/hr Documented By: CARINA Cefepime HCl (Maxipime) 2 gm in 50 mls @ 100 mls/hr IV Q8H [facility] Last Infusion: 02/05/25 10:44 Dose: Infused Documented By: ELIDA Magnesium Hydroxide (Milk Of Magnesia 30 Ml Oral.Susp) 30 ml PO DAILY PRN PRN Reason: Constipation Melatonin (Melatonin 3 Mg Tablet) 6 mg PO BEDTIME PRN PRN Reason: Insomnia Sodium Chloride (0.9 % Sodium Chloride Flush 3 Ml Syringe) 3 ml IVFLUSH QSHIFT [facility] Last Admin: 02/05/25 09:28 Dose: 3 ml Documented By: ELIDA Labs 02/05/25 07:45 02/05/25 07:45 Labs: Laboratory Results - last 24 hr 02/04/25 02/04/25 02/04/25 15:04 15:05 15:18 MCV 99.1 H MCH 34.8 H MCHC 35.1 RDW 11.9 Plt Count 238 MPV 8.9 L Immature Gran % (Auto) 0.8 H Neut % (Auto) 91.7 H Lymph % (Auto) 2.0 L Lipscomb % (Auto) 5.2 Eos % (Auto) 0.0 Baso % (Auto) 0.3 Lymph # (Auto) 0.4 L Lipscomb # (Auto) 1.1 Eos # (Auto) 0.0 Baso # (Auto) 0.1 Abs Immat Gran (auto) 0.17 H Absolute Neuts (auto) 18.7 H Absolute Nucleated RBC 0.000 Nucleated RBC % (auto) 0.0 Smear Tech's Comments VERIFIED Anion Gap 13 Estim Creat Clear Calc 152.4 Estimated GFR > 60 Random Glucose 106 Lactic Acid 2.4 H* Lactic Acid F/U @ 2Hr Calcium 9.5 D Magnesium 2.2 Total Bilirubin 1.6 H Direct Bilirubin 0.3 AST 28 ALT 39 Alkaline Phosphatase 108 Troponin I High Sens < 2.7 Total Protein 7.2 Albumin 5.0 Lipase 22 Urine Color Yellow Urine Appearance Cloudy Urine pH 6.5 Ur Specific [place] 1.020 Urine Protein Negative Urine Glucose (UA) Negative Urine Ketones Negative Urine Blood Small (1+) H Urine Nitrite Positive H Ur Leukocyte Esterase Moderate (2+) H Urine RBC 3-5 H Urine WBC >50 H Ur Squamous Epith Cells 0-2 Urine Bacteria 4+ Hyaline Casts 0-2 COVID-19 (PHILLIP) Negative COVID-19 Clin Com See Note Influenza Type A (EL) Negative Influenza Type B (EL) Negative Influenza A & B Note See Note 02/04/25 02/05/25 18:14 07:45 MCV 101.3 H MCH 33.8 H MCHC 33.3 RDW 12.1 Plt Count 188 MPV 9.0 L Immature Gran % (Auto) 0.6 H Neut % (Auto) 84.7 H Lymph % (Auto) 8.2 L Lipscomb % (Auto) 6.2 Eos % (Auto) 0.1 Baso % (Auto) 0.2 Lymph # (Auto) 1.4 Lipscomb # (Auto) 1.1 Eos # (Auto) 0.0 Baso # (Auto) 0.0 Abs Immat Gran (auto) 0.11 H Absolute Neuts (auto) 14.4 H Absolute Nucleated RBC 0.000 Nucleated RBC % (auto) 0.0 Smear Tech's Comments Anion Gap 10 L Estim Creat Clear Calc 153.8 Estimated GFR > 60 Random Glucose 100 Lactic Acid Lactic Acid F/U @ 2Hr 2.0 Calcium 8.5 D Magnesium Total Bilirubin 2.0 H Direct Bilirubin AST 50 H ALT 57 H Alkaline Phosphatase 88 Troponin I High Sens Total Protein 5.6 L Albumin 3.7 Lipase Urine Color Urine Appearance Urine pH Ur Specific [place] Urine Protein Urine Glucose (UA) Urine Ketones Urine Blood Urine Nitrite Ur Leukocyte Esterase Urine RBC Urine WBC Ur Squamous Epith Cells Urine Bacteria Hyaline Casts COVID-19 (PHILLIP) COVID-19 Clin Com Influenza Type A (EL) Influenza Type B (EL) Influenza A & B Note Assessment and Plan (1) Sepsis: Status: Acute (2) Cystitis: Status: Acute Plan 44-year-old urethral stricture, history; presented to the hospital with a chief complaint of fever/dysuria. Admitted for following Sepsis d/t UTI, cultures pending. Outpatient urine grew E.coli not sure of sensitivity, sepsis resolving CT of abdomen and pelvis: 1. No CT evidence of acute pyelonephritis. 2. Urinary bladder wall thickening, correlate with urinalysis for cystitis. Small left-sided urinary bladder diverticulum. 3. Nonobstructing left renal stones. No ureteral stones and no hydronephrosis or hydroureter bilaterally. continue present Abx urology consult given recurent uti in a young men follow cultures plan discussed with pt and at bedside, dvt prophylaxis:lovenox full codde out of bed, ambulate Quality Stroke Does the patient have a stroke diagnosis?: No VTE Prior VTE?: No VTE Risk Level:: Medical - moderate - high VTE Device Contraindication: Treatment Not Indicated VTE Drug Contraindication: N/A - Med Ordered
--- NOTE | 2025-02-05 16:16 | MHC.CM.PN ---
Patient lives in a home alone. Independent. Denies use of DME or services. PCP Kaci Roy MD No HCP. CM provided education and offered assistance. Patient declined. DP: Home self care. Girlfriend to transport. CM will continue to follow.
--- NOTE | 2025-02-05 17:47 | PC.NURSE ---
I just met with patient at the request of the RN caring for patient because patient is concerned that he does not know the plan from the provider and would like nephrology consulted. I spoke with Dr Haji who states he spoke with pt twice and has stated he is awaiting cx results and then will determine what oral abx pt will be placed on, Also Dr Puentes from urology has been consulted and will see pt inpatient if still in when he comes or outpatient if Dc'd. I iwll convey that to the pt. Raissa offers to speak with pt by phone again if needed.
--- NOTE | 2025-02-05 18:30 | PC.NURSE ---
I returned to pt's room and spoke with him along with his primary nurse Ramana Briggs. I explained that Dr Haji is waiting for cx results to provide the appropriate oral antibiotic and I explained that although pt is concerned about his PSA level and possible enlarged prostate and status of issues that the consulting urologist Dr Puentes would see pt if not inhouse then outpatient per Dr Haji. I confirmed with Dr Haji that a consult was ordered and assured the pt of that. Pt had no further questions and verbalized understanding of the plan. Denies wishing to speak with Dr Haji at this time.
[2025-02-06] MEDS: Lactated Ringers 1,000 ML 100 ML IVCONT (01:46)
[2025-02-06 03:20] VITALS: BP 121/82; PULSE 77; RESP 18; TEMP 36.6; O2SAT 99
[2025-02-06 06:54] LABS: Hematocrit 36.9 % (42.0-52.0); Hemoglobin 12.5 g/dl (14.0-18.0); Mean Corpuscular HGB Conc 33.9 g/dl (31.0-36.0); Mean Corpuscular Hemoglobin 34.1 pg (27.0-33.0); Mean Corpuscular Volume 100.5 fL (80.0-98.0); NRBC Abs Auto 0.000 X10*3/uL (0.0-0.012); NRBC Pct Auto 0.0 /100WBC (0.0-0.2); Platelet Count 172 X10*3/uL (160-400); Red Blood Count 3.67 X10*6/uL (4.60-5.80); White Blood Count 10.5 X10*3/uL (4.8-10.8)
[2025-02-06 07:11] LABS: Anion Gap 12 (12-20); Blood Urea Nitrogen 8 mg/dL (9-16); Calcium 8.5 mg/dL (8.4-10.2); Carbon Dioxide 26 mmol/L (22-29); Chloride 108 mmol/L (96-108); Creatinine Clr Calc Pharmacy 150.2; Estimated Glomerular Filt Rate > 60; Potassium 3.7 mmol/L (3.3-5.1); Sodium 142 mmol/L (135-145)
[2025-02-06] MEDS: cefEPime HCl/D5W 2 GM/50 ML PIGGYBACK IV (07:37)
[2025-02-06 08:03] VITALS: BP 142/92; PULSE 86; RESP 18; TEMP 37.1; O2SAT 96
[2025-02-06] MEDS: Butalb/Acetamin/Caff 50/325/40 TABLET 1 TAB PO (09:07)
--- NOTE | 2025-02-06 09:14 | PM.DS ---
DS: Providers Provider Date of Service: 02/06/25 Date of admission: 02/04/25 19:26 Date of discharge: 02/06/25 Primary care physician: Kaci Roy Consults: 02/05/25 09:39 Consult to Urology Routine Consulting Provider: [facility] Reason for consultation: recurernt uti, stone, bladder wall thickening DS: Diagnosis Discharge Diagnosis (1) Sepsis: Status: Acute (2) Cystitis: Status: Acute DS: Summary Hospital Course Hospital Course: admission hpi Chief Complaint: Fever 44-year-old urethral stricture, history; presented to the hospital with a chief complaint of fever/dysuria. Patient also reports dysuria/urinary urgency. Patient mentioned that his urinary symptoms started about a week ago had a urinalysis done by his PCP which grew E coli. Patient was given Macrobid but patient has not started taking it as he was on vacation; presented today with fevers and chills. Reports having mild nausea Denies any chest pain or palpitations. Review of all other systems is negative except mentioned above ER course: Per ER team, patient's exam was fairly benign but patient was noted to be tachycardic in 150s; febrile; has severe leukocytosis; given IV fluids at 30 cc/kg; urinalysis abdominal cancer with UTI. CT scan showed cystitis. hospital course: The patient presented with fever and urinary symptoms. His urinalysis was consistent with a urinary tract infection (UTI). He had been treated for a UTI three weeks prior, but his symptoms recurred one week after completing therapy. He was prescribed nitrofurantoin (Macrobid) for an E. coli UTI but only took one dose before presenting to the hospital with fever, chills, and urinary symptoms. On admission, his white blood cell (WBC) count was 20,000, and he was tachycardic. Repeat urinalysis confirmed a UTI. Review of prior culture from [facility] showed a harrison-sensitive E. coli, and he was started on cefepime. By the next day, his WBC decreased to 17,000, and he was afebrile. Today, his WBC is 10,000, with no fever or tachycardia. CT of the abdomen and pelvis showed no evidence of acute pyelonephritis, but did reveal urinary bladder wall thickening (suggestive of cystitis), a small left-sided bladder diverticulum, and nonobstructing left renal stones. There were no ureteral stones, hydronephrosis, or hydroureter. Given his recurrent UTI and young age, benign prostatic hyperplasia (BPH) is suspected. He will be referred to urology for further evaluation, which can be arranged on an outpatient basis. Final diagnosis: Sepsis UTI cystitis Bladder diverticulum BPH Time Attestation Discharge Coordination Time (in mins): 45 Quality: Safe Use of Opioids Does Pt have an Active Cancer Diagnosis on the Problem List?: No Quality: Stroke Does the patient have a stroke diagnosis?: No Physical Exam Exam: Exam: General: AO X 3, no acute distress Resp: CTA bilateral CVS: S1,S2,RRR GI: +BS, NT, no distention Skin: No rash Neuro: motor grossly intact Psych: appropriate affect Vital Signs: Vital Signs: Last Vital Signs Temp 98.7 F 02/06/25 08:03 Pulse 86 02/06/25 08:03 Resp 18 02/06/25 08:03 BP 142/92 H 02/06/25 08:03 Pulse Ox 96 02/06/25 08:03 O2 Del Method Room Air 02/06/25 08:03 BMI result Body Mass Index 32.5 DS: Data Data Completed and Pending Labs on day of discharge: Laboratory Results - last 24 hr 02/06/25 06:14 WBC 10.5 RBC 3.67 L Hgb 12.5 L Hct 36.9 L MCV 100.5 H MCH 34.1 H MCHC 33.9 RDW 11.9 Plt Count 172 MPV 8.9 L Absolute Nucleated RBC 0.000 Nucleated RBC % (auto) 0.0 Sodium 142 Potassium 3.7 Chloride 108 Carbon Dioxide 26 Anion Gap 12 BUN 8 L Creatinine 0.84 Estim Creat Clear Calc 150.2 Estimated GFR > 60 Random Glucose 92 Calcium 8.5 Preliminary micro results at discharge 02/04/25 15:18 Blood Culture - Preliminary Blood - Venous No growth after 24 hours. 02/04/25 15:04 Blood Culture - Preliminary Blood - Venous No growth after 24 hours. 02/04/25 Unknown Urine Culture - Preliminary Urine clean catch - Clean Catch Midstream Culture in progress. Discharge Plan Discharge Anticipated Discharge Date/Time: 02/06/25 09:09 Patient Disposition: Home, Self-Care Discharge Diagnosis: Sepsis,UTI, cystitis, Referrals: Kaci Roy [Other] - 1 Week Discharge Medications: New levofloxacin 750 mg tablet 750 mg PO DAILY 7 Days Qty: 7 0RF No Action No Known Home Meds Diet: Advance to usual diet Activity on Discharge: As tolerated Stand Alone Forms: Patient Portal Discharge page Print Language: Spanish Care Plan Goals: recovery from UTI and sepsis Health Concerns: sepsis recurrent uti cystitis Plan of Treatment: tale levaquin 750 mg daily follow up with your primary care doctor, call for appointment follow up with Urology (Dr. Heck) Assessment: see above
--- NOTE | 2025-02-06 11:22 | MHC.CM.PN ---
Patient medically cleared for dc home self care via private transport.
== END 2025-02-06 11:42 | disposition home or self-care (01) | DRG 720 ==
LOC: HO.ED 19:08 → HO.EDOVER 19:38 → HO.IMC 19:47 → HO.S3 02-05 13:10
PROVIDERS: Physician Assistant Medical; Admitting Provider Hospitalist; Emergency Provider Emergency Medicine; Visit Provider Internal Medicine
DX: A41.9 Sepsis, unspecified organism (principal); N30.01 Acute cystitis with hematuria; F17.210 Nicotine dependence, cigarettes, uncomplicated; Z71.6 Tobacco abuse counseling; B96.20 Unspecified Escherichia coli [E. coli] as the cause of diseases classified elsewhere; N40.0 Benign prostatic hyperplasia without lower urinary tract symptoms; N32.3 Diverticulum of bladder; R58 Hemorrhage, not elsewhere classified; N20.0 Calculus of kidney; Z20.822 Contact with and (suspected) exposure to COVID-19; Z87.440 Personal history of urinary (tract) infections
CPT/HCPCS: 36415; 74177; 80048; 80053; 80076; 81001; 83605; 83690; 83735; 84484; 85025; 85027; 87040; 87086; 87088; 87186; 87502; 87635; 93005; 99285; J0131; J0692; J1171; J1200; J1650; J1885; J2765; J7120; Q9967

== ENCOUNTER → 2025-02-04 14:39 | Outpatient (BNV) | payer BC, SELFPAY | PROVIDERS: Admitting Provider Hospitalist; Emergency Provider Emergency Medicine; Visit Provider Internal Medicine Cardiovascular Disease | DX: R00.0 Tachycardia, unspecified (principal) | CPT/HCPCS: 93010 ==

== ENCOUNTER → 2025-02-04 16:01 | Outpatient (BNV) | payer BC, SELFPAY | PROVIDERS: Admitting Provider Hospitalist; Emergency Provider Emergency Medicine; Visit Provider Specialist | DX: N32.3 Diverticulum of bladder (principal) | CPT/HCPCS: 74177 ==

== ENCOUNTER → 2025-02-04 19:26 | Outpatient (BNV) | payer BC, SELFPAY | PROVIDERS: Admitting Provider Hospitalist; Emergency Provider Emergency Medicine; Visit Provider Internal Medicine | DX: A41.9 Sepsis, unspecified organism (principal); N30.90 Cystitis, unspecified without hematuria | CPT/HCPCS: 99232 ==

== ENCOUNTER 2025-03-17 11:01 | Outpatient (AMB) | payer BC, SELFPAY ==
--- NOTE | 2025-03-17 11:03 | A.OFFVIS_ITS ---
Intake Visit Reasons: 6W-ER F/U Intake Note: Patient is present for 6 wk ER follow up Urology Rx:None PVR:40 MLS Blood Thinners:none Imaging completed:ABD CT 02/04/25 Primary Health Care Nurse Required: No Accompanied by: Self / Same As Patient Allergies No Known Allergies Allergy (Verified 03/17/25 11:10) HPI Comments Details: Dany is a pleasant male. He is seen for the following urologic conditions - cystitis Seen in emergency room Diagnosis with cystitis pyelonephritis - admitted overnight for antibiotics Pansensitive E coli CT scan with cystitis and small left renal stones Large prostate Background history of urethral stricture Repair with Dr. Jeffrey at [facility] 2022 Discussed consistent bladder emptying Follow-up six-month [facility] Social History Household Members: None Housing: House Do you presently have visiting nurse or other home services: No Alcohol intake: current Alcohol intake frequency: holidays/special occasions only Comment: steady gait noted Patient Tobacco Use Status: Current someday Tobacco user Tobacco use type: Cigar e-Cigarette/Vaping Use: Never Used Second Hand Smoke Exposure: No service: No Review of Systems Const Denies chills and Denies fever(s) Card Reports no additional complaints and Denies syncope Resp Denies cough GI Denies abdominal pain and Denies heartburn Reports as per HPI and Denies change in libido Neuro Denies syncope Psych Denies change in libido Endo Denies change in libido Physical Exam Const General: cooperative, healthy appearing, comfortable and no acute distress Orientation/consciousness: patient oriented x3 HEENT Face and sinus: Yes normal facial exam Mouth: moist mucous membranes Neck Neck: Yes normal visual inspection, Yes full ROM and Yes trachea midline Chest Chest palpation & inspection: normal inspection of the chest Resp Effort & Inspection: normal respiratory effort, able to speak in complete sentences and no respiratory distress GI Inspection: Yes normal to inspection Back/Spine/Pelvis Cervical Spine: normal cervical lordosis Thoracic/Lumbar Spine: thoracic and lumbar spine normal to inspection Skin General skin exam: no rashes or lesions noted Neuro General: patient oriented x3, gait normal, tone normal and moves all extremities Extrem General: Yes normal to inspection and Yes capillary refill normal Office Procedures Post Void Residual Post Residual Void Post Void Residual (PVR): 40 [id number] Void Residual by ultrasound Results AMB Urinalysis, Automated UA Leukoctes 0 Jamir/uL Last Edit by Patricia Colon, [facility] on 03/17/25 11:11 UA Nitrite Negative Last Edit by Patricia Colon, [facility] on 03/17/25 11:11 UA Urobilinogen 0.2 mg/dL Last Edit by Patricia Colon, [facility] on 03/17/25 11:11 UA Protein 15 mg/dL Last Edit by Patricia Colon, [facility] on 03/17/25 11:11 UA pH 7.0 Last Edit by Patricia Colon, [facility] on 03/17/25 11:11 UA Blood 0 Misael/uL Last Edit by Patricia Colon, [facility] on 03/17/25 11:11 UA Specific [place] 1.015 Last Edit by Patricia Colon, [facility] on 03/17/25 11:1 1 UA Ketone Negative Last Edit by Patricia Colon, [facility] on 03/17/25 11:11 UA Bilirubin 0 mg/dL Last Edit by Patricia Colon, [facility] on 03/17/25 11:11 UA Glucose 0 mg/dL Last Edit by Patricia Colon, [facility] on 03/17/25 11:11 AMB Urinalysis, Automated UA Leukoctes 0 Jamir/uL Last Edit by Patricia Colon, [facility] on 03/17/25 11:19 UA Nitrite Negative Last Edit by Patricia Colon, [facility] on 03/17/25 11:19 UA Urobilinogen 0.2 mg/dL Last Edit by Patricia Colon, [facility] on 03/17/25 11:19 UA Protein 15 mg/dL Last Edit by Patricia Colon, [facility] on 03/17/25 11:19 UA pH 7.0 Last Edit by Patricia Colon, [facility] on 03/17/25 11:19 UA Blood 0 Misael/uL Last Edit by Patricia Colon, [facility] on 03/17/25 11:19 UA Specific [place] 1.015 Last Edit by Patricia Colon, [facility] on 03/17/25 11:1 9 UA Ketone Negative Last Edit by Patricia Colon, [facility] on 03/17/25 11:19 UA Bilirubin 0 mg/dL Last Edit by Patricia Colon, [facility] on 03/17/25 11:19 UA Glucose 0 mg/dL Last Edit by IGOR Dejesus on 03/17/25 11:19 Results Reviewed Results Reviewed: Laboratory Last Values Urine pH (Auto) 7.0 03/17/25 11:19 Specific [place] (Auto) 1.015 03/17/25 11:19 Urine Protein (Auto) 15 mg/dL 03/17/25 11:19 Glucose (UA)(Auto) 0 mg/dL 03/17/25 11:19 Urine Ketones (Auto) Negative 03/17/25 11:19 Urine Blood (Auto) 0 Misael/uL 03/17/25 11:19 Urine Nitrite (Auto) Negative 03/17/25 11:19 Urine Bilirubin (Auto) 0 mg/dL 03/17/25 11:19 Urine Urobilinogen (Auto) 0.2 mg/dL 03/17/25 11:19 Leukocyte Esterase (Auto) 0 Jamir/uL 03/17/25 11:19 Assessment & Plan Assessment & Plan (1) Cystitis: Code(s): N30.90 - Cystitis, unspecified without hematuria Category: Medical Plan Six-month follow-up Patient Instructions: This note is constructed using voice recognition software. While every effort has been made to ensure accuracy fish conservationist errors may have been included. Imaging studies, laboratory and physical exam results were discussed and reviewed in detail. No major barriers to patient understanding were identified. An opportunity to ask questions regarding the treatment plan was provided. All questions were answered. The patient expressed understanding and agreement with the above treatment plan. The patient is aware they should contact our office by phone for worsening of their current condition or the appearance of new urologic symptoms. Compliance is encouraged with any medications and followup testing that is ordered. It is a privilege to participate in the urologic care of your patient. If you have any questions or concerns regarding treatment for the above conditions, or other urologic issues, please do not hesitate to contact me. The office telephone contact is [phone]. Sincerely, Dr Jovani Heck MD, [facility] - Urology Compassionate Specialist Care for the Genitourinary System Coding Level of Care Code New Pt Level 3 (68523) Diagnoses Cystitis N30.90 CPT Codes Post Residual Void - PVR CPT Code: 64969-Xexk Void Residual by ultrasound ([id number])
--- OUTSIDE RECORDS SUMMARY | 2025-03-17 17:01 | XMS_ITS | Clinical Summary ---
Author Organization [facility] Address [address] [place] [address] Care Team Providers Care Detective Chief Name Role Phone Pcp, No Primary Care Provider Unavailabl e Allergies No known active allergies Medications predniSONE (Deltasone) 20 mg tablet PLEASE SEE ATTACHED FOR DETAILED DIRECTIONS Active Encounters Date Type Department Care Team Description 12/28/2024 Results Follow-Up [facility] Emergency Department [address] [id number] Mariam Mckeon RN Urine Culture 12/28/2024 Telephone [facility] Emergency Department - [address] [id number] Carolin Lopez PA-C 12/26/2024 2:22 PM EDT - 12/26/2024 4:56 PM EDT Emergency [facility] Emergency Department [address] [id number] Giselle Arthur MD Fall, initial encounter (Primary Dx); Hematoma Discharge Disposition: Home or Self Care 12/26/2024 Procedure Pass [facility] Radiology, [facility] ([place] Scan) [address] [place] [address] [id number] 12/26/2024 Travel from Last 3 Months Social History Tobacco [...] 1982 Annual Physical Exam 2000 COVID-19 Vaccine (2024-2 6 season) 2024 Influenza Vaccine (#1) 2024 03/17/2018 [...] URINE CULTURE Routine 12/26/2024 2:34 PM EDT from Last 3 Months Results * CT ABDOMEN/PELVIS AND SPINE RECONS WITH CONTRAST (12/26/2024 4:06 PM EDT) Anatomical Region Laterality Modality Body Computed Tomogra phy 12/26/2024 4:0 9 PM EDT Impressions 12/26/2024 4:11 PM EDT [...] Gluteus owen hematoma. us Giselle Arthur MD IM CT PROCEDURES Final Resul t * Comprehensive [...] LAB CHEMISTRY METHOD 12/26/2024 3:55 PM EDT [facility] Creatinine, Serum 0.8 0.7 - 1.3 mg/dL LAB CHEMISTRY METHOD 12/26/2024 3:55 PM EDT [facility] B/CR Ratio 21.3 6.0 - 23.0 12/26/2024 3:55 PM EDT [facility] Glomerular Filtration Rate >=60 >=60 mL/min/1. 73 m2 12/26/2024 3:55 PM EDT [facility] Comment:Calculation based on the Chronic Kidney Disease Epidemiology Collaboration(CKD-EPI) equation refit without adjustment for race. Calcium, Total 8.9 8.7 - 10.4 mg/dL LAB CHEMISTRY METHOD 12/26/2024 3:55 PM EDT [facility] Total Protein 6.3 5.7 - 8.2 g/dL LAB CHEMISTRY METHOD 12/26/2024 3:55 PM EDT [facility] Albumin Level 4.5 3.2 - 4.8 g/dL LAB CHEMISTRY METHOD 12/26/2024 3:55 PM EDT [facility] A/G Ratio 2.5 1.1 - 3.0 12/26/2024 3:55 PM EDT [facility] Total Bilirubin 1.2 0.1 - 1.2 mg/dL LAB CHEMISTRY METHOD 12/26/2024 3:55 PM EDT [facility] Comment:The [employer] Tota l Bilirubin_2 (TBil_2) assay is based on a chemical oxidation method using vanadate as an oxidizing agent. ALT 37 10 - 49 U/L LAB CHEMISTRY METHOD 12/26/2024 3:55 PM EDT [facility] AST 27 <34 U/L LAB CHEMISTRY METHOD 12/26/2024 3:55 PM EDT [facility] Alkaline Phosphatase 97 28 - 130 U/L LAB CHEMISTRY METHOD 12/26/2024 3:55 PM EDT [facility] Blood Venous blood / Unknown Venipuncture / Unknown 12/26/2024 3:17 PM EDT 12/26/2024 3:24 PM EDT us Giselle Arthur MD LAB BLOOD ORDERABLES Final Re sult [facility] [id number] [place] [address], * (ABNORMAL) CBC auto differential (12/26/2024 3:17 PM EDT) Auto WBC 10.1 4.5 - 11.5 cells X 10*3/uL 12/26/2024 3:28 PM EDT [facility] RBC 3.82(L) 4.60 - 6.00 cells X 10*6/uL 12/26/2024 3:28 PM EDT [facility] Hemoglobin 13.1(L) 14.0 - 18.0 g/dL 12/26/2024 3:28 PM EDT [facility] Hematocrit 37.8(L) 40.0 - 54.0 % 12/26/2024 3:28 PM EDT [facility] MCV 99.0(H) 80.0 - 94.0 fL 12/26/2024 3:28 PM EDT [facility] MCH 34.3(H) 26.0 - 32.0 pg 12/26/2024 3:28 PM EDT [facility] MCHC 34.7 32.0 - 37.0 g/dL 12/26/2024 3:28 PM EDT [facility] RDW (CV) 11.9 11.5 - 14.5 % 12/26/2024 3:28 PM EDT [facility] RDW (SD) 43.5 36.0 - 48.8 fL 12/26/2024 3:28 PM EDT [facility] Platelets 251 150 - 450 cells X 10*3/uL 12/26/2024 3:28 PM EDT [facility] MPV 8.8(L) 9.5 - 12.3 fL 12/26/2024 3:28 PM EDT [facility] Granulocytes % 79.2 % 12/26/2024 3:28 PM EDT [facility] Comment:Percent cell count r eference ranges have been removed. Per the [employer] recommendations, these ranges should not be reported when absolute cell count reference ranges are reported as this can lead to misinterpretation of CBC data. Immature Granulocytes % 0.2 % 12/26/2024 3:28 PM EDT [facility] Comment:Immature Granulocyte s (percent and absolute counts) include neutrophilic metamyelocytes, myelocytes, and promyelocytes. Lymphocytes % 12.6 % 12/26/2024 3:28 PM EDT [facility] Monocytes % 7.0 % 12/26/2024 3:28 PM EDT [facility] Eosinophils % 0.7 % 12/26/2024 3:28 PM EDT [facility] Basophils % 0.3 % 12/26/2024 3:28 PM EDT [facility] Gran # 8.0 2.3 - 8.6 cells X 10*3/uL 12/26/2024 3:28 PM EDT [facility] Comment:Please Note: Gran # is equivalent to ANC. IMM GRAN # 0.02 0.00 - 0.05 cells X 10*3/uL 12/26/2024 3:28 PM EDT [facility] Eosinophils # 0.1 0.0 - 0.4 cells X 10*3/uL 12/26/2024 3:28 PM EDT [facility] Lymphocytes # 1.3 0.8 - 4.8 cells X 10*3/uL 12/26/2024 3:28 PM EDT [facility] MONO # 0.7 0.1 - 1.3 cells X 10*3/uL 12/26/2024 3:28 PM EDT [facility] BASOPHIL # 0.0 0.0 - 0.2 cells X 10*3/uL 12/26/2024 3:28 PM EDT [facility] Blood Venous blood / Unknown Venipuncture / Unknown 12/26/2024 3:17 PM EDT 12/26/2024 3:24 PM EDT us Giselle Arthur MD LAB BLOOD ORDERABLES Final Re sult [facility] [id number] [place] [address], * Lipase (12/26/2024 3:17 PM EDT) Lipase 32 12 - 53 U/L LAB CHEMISTRY METHOD 12/26/2024 3:55 PM EDT [facility] Blood Venous blood / Unknown Venipuncture / Unknown 12/26/2024 3:17 PM EDT 12/26/2024 3:24 PM EDT Giselle Arthur MD LAB BLOOD ORDERABLES Final Re sult [facility] [id number] [place] [address], [place] * (ABNORMAL) UA with Reflex Culture (12/26/2024 2:34 PM EDT) Color Yellow Yellow, Straw, Dark Yellow 12/26/2024 2:40 PM EDT [facility] Clarity Slightly Cloudy(A) Clear 12/26/2024 2:40 PM EDT [facility] Specific [place] 1.025 12/27/19 2:40 PM EDT [facility] Comment:Values <1.005 and >1 .030 are considered abnormal. Results should always be interpreted in conjunction with the patient s medical history, clinical presentation, and other findings. pH 6.0 5.0 - 8.0 pH 12/26/2024 2:40 PM EDT [facility] Protein Trace Negative, Trace mg/dL 12/26/2024 2:40 PM EDT [facility] Glucose Negative Negative mg/dL 12/26/2024 2:40 PM EDT [facility] Ketones Trace(A) Negative mg/dL 12/26/2024 2:40 PM EDT [facility] Nitrite Positive(A) Negative 12/26/2024 2:40 PM EDT [facility] Bilirubin Negative Negative 12/26/2024 2:40 PM EDT [facility] Blood Negative Negative 12/26/2024 2:40 PM EDT [facility] Leukocyte Esterase Trace(A) Negative 12/26/2024 2:40 PM EDT [facility] UA Urobilinogen 0.2 0.2 - 1.0 E.U./dL 12/26/2024 2:40 PM EDT [facility] Urine Urine specimen collection, clean catch / Unknown Non-blood Collection / Unknown 12/26/2024 2:34 PM EDT 12/26/2024 2:36 PM EDT Giselle Arthur MD LAB URINE ORDERABLES Final Re sult Performing Organization Address [facility] de Phone Number [facility] [id number] [address] [place] [address], [place] * (ABNORMAL) Manual Urine Microscopic (12/26/2024 2:34 [...] None Seen /lpf 12/26/2024 2:52 PM EDT [facility] Urine Urine specimen collection, clean catch / Unknown Non-blood Collection / Unknown 12/26/2024 2:34 PM EDT 12/26/2024 2:36 PM EDT us Giselle Arthur MD LAB URINE ORDERABLES Final Re sult Performing Organization Address [facility] Co de Phone Number [facility] [id number] [address] [place] [address], [place] * (ABNORMAL) Urine Culture (12/26/2024 2:34 PM [...] OR DERABLES Final Result LABORATORY SERVICES [id number] [place] [address], from Last 3 Months Insurance [facility] Care Teams Detective Chief Relationship Specialty Start Date End Date Pcp, [place] [address] PCP - General 12/10/24
--- OUTSIDE RECORDS SUMMARY | 2025-03-17 17:02 | XMS_ITS | Encounter Summary ---
Author Organization [facility] Address [address] [place] [address] Phone Care Team Providers Care Tire Repairer Name Role Phone Jessica Reid MD Primary Care Provider [phone] Dat Childress MD Primary Care Provider [phone] Dank Henry MD Primary Care Provider [phone] Encounter Details Date Type Department Care Team (Late st Contact Info) Description 07/12/2021 Procedure Pass [facility], Ct Scan - [address] [address] Social History Tobacco Use Types Packs/Day Years [...] 07/12/2021 10:13 PM Tej Arana, RN * [place] Suicide Severity Rating Scale (Screener/Recent Self-Report) Question [...] on filedocumented in this encounter Care Teams Tire Repairer Relationship Specialty Start Date End Date Jessica Reid MD [address] [place] [address] PCP - General Internal Medicine 07/12/21 08/02/21 Dat Childress MD [address] [place] [address] [address] [place] [address] [email or web address] PCP - General Family Medicine 08/03/21 11/06/21 Dank Henry MD [address] [place] [address] PCP - General Internal Medicine 11/07/21 documented as of this encounter Additional Source Comments The information contained in this document represents components of the legal health record. It is not the complete legal health record.[facility]
--- OUTSIDE RECORDS SUMMARY | 2025-03-17 17:02 | XMS_ITS | Clinical Summary ---
Author Organization [facility] Address [address] [place] [phone] Phone Care Team Providers Care Special Education Inclusion Teacher Name Role Phone Dank Henry MD Primary Care Provider [phone] Allergies No known active allergies Social History [...] SMOKING Hx and SMOKELESS TOBACCO SCREENING 1995 HIV ONE-TIME SCREENING (18-6 5 YEARS) 2000 INFLUENZA VACCINE (#1) 2024 COVID-19 VACCINE (3 - 2024-2 6 season) 2024 08/31/2020, 08/05/2020 Adult Td,Tdap Booster 04/15/2028 04/15/2018 PNEUMOCOCCAL VACCINES (0-49 years) Aged Out 04/15/2018 No longer eligible b ased on patient's age to complete this topic HEPATITIS C SCREENING Completed 08/03/2021 , 08/03/2021 HEPATITIS A VACCINES Aged Out No long er eligible based on patient's age to complete this topic HIB VACCINES Aged Out No longer eligi ble based on patient's age to complete this topic IPV VACCINES Aged Out No longer eligi ble based on patient's age to complete this topic MENINGOCOCCAL VACCINES (ACWY) Aged Out No longer eligible based on patient's age to complete this topic MENINGOCOCCAL VACCINES (B) Aged Out N o longer eligible based on patient's age to complete this topic Medical Devices Not on file Procedures Procedure Name Priority Date/Time Associated Diagnosis Comments HEPATITIS B CORE ANTIBODY, TOTAL Routine 08/03/2021 4:20 PM EDT Crohn's disease with complication, unspecified gastrointestinal tract location from Last 3 Months or Most Recently Relevant to Health Maintenance Results * Hepatitis B core antibody, total (08/03/2021 4:20 PM EDT) HEP B CORE AB, TOT NON-REACTI VE NON-REACTI VE [facility] Blood 08/03/2021 4:20 PM EDT 08/03/2021 4:33 PM EDT us Matt Oneal MD LAB BLOOD BKR ORDERABLES Final R esult [facility] [address] [place] [address] from Last 3 Months or Most Recently Relevant to Health Maintenance [place] [address] [place] [address] OUT OF STATE PPO BLUE PRICE OUT OF [facility] PPO OUT OF [facility] [place] [address] [place] [address] OUT OF STATE PPO [place]UE PRICE OUT OF [facility] [place] [address] [place] [address] OUT OF [facility] PPO OUT OF STATE PPO BLUE PRICE OUT OF [facility] PPO OUT [facility] PPO Care Teams Special Education Inclusion Teacher Relationship Specialty Start Date End Date Dank Henry MD [id number] [address] PCP - General Internal Medicine 11/07/21 Additional Source Comments The information contained in this document represents components of the legal health record. It is not the complete legal health record.[facility]
--- OUTSIDE RECORDS SUMMARY | 2025-03-17 17:02 | XMS_ITS | Encounter Summary ---
Author Organization [facility] Address [address] [id number] Care Team Providers Care Sales Merchandising Specialist Name Role Phone Pcp, No Primary Care Provider Unavailabl e Encounter Details Date Type Department Care Team (Late st Contact Info) Description 12/26/2024 Procedure Pass [facility] Radiology, [facility] (CT Scan) [address] [place] [address] Social History Tobacco Use Types Packs/Day Years [...] on filedocumented in this encounter Care Teams Sales Merchandising Specialist Relationship Specialty Start Date End Date Pcp, No [place] [address] PCP - General 12/10/24 documented as of this encounter
== END 2025-03-17 11:46 | disposition home or self-care (01) ==
LOC: HO.HUSH 11:02
PROVIDERS: Visit Provider Urology
DX: N30.90 Cystitis, unspecified without hematuria (principal)
CPT/HCPCS: 99203

== ENCOUNTER → 2025-03-17 11:01 | Outpatient (BNVA) | payer BC, SELFPAY | PROVIDERS: Visit Provider Urology | DX: N30.90 Cystitis, unspecified without hematuria (principal) | CPT/HCPCS: 51798 ==